=== PATIENT | female | born 1990 | race Caucasian/White ===

== ENCOUNTER 2020-05-25 15:33 | Emergency (ER) | payer BC, SELFPAY ==
[2020-05-25 15:42] VITALS: TEMP 36.6; O2SAT 98
--- NOTE | 2020-05-25 15:52 | NUR.NOTE ---
Nursing Note: provided tractor operator for exam for
--- NOTE | 2020-05-25 16:55 | ED.GENADUL_ITS ---
Discharge Plan Disposition Patient Disposition: HOME Condition: Stable Discharge Details Clinical Impression: Injury of coccyx Primary Care Provider: Tita May ED Provider: Osmar Ceron Home Meds and New Rx's Prescriptions: Continued albuterol sulfate [ProAir HFA] 90 mcg/actuation HFA aerosol inhaler 2 puff IH Q6H Qty: 8.5 RF: 1 omeprazole 40 mg capsule,delayed release(DR/EC) 40 mg PO DAILY Qty: 60 RF: 6 metoclopramide HCl [Reglan] 10 mg tablet 10 mg PO QAC PRN (Reason: nausea and vomiting) Qty: 30 RF: 0 ondansetron HCl [Zofran] 4 mg tablet 4 mg PO Q8H PRN (Reason: nausea and vomiting) Qty: 20 RF: 1 No Action enoxaparin 40 mg/0.4 mL syringe 40 mg SC DAILY Qty: 4 RF: 10 Discharge Instructions Instructions: Coccyx Injury (ED) Additional Instructions: Please take acetaminophen (tylenol) - 650mg every 6 hours by mouth as needed for pain. Please hold your Lovenox dose today. You can continue tomorrow night. Please follow-up with obstetrics. Call on Tuesday. Return to the ER for any worsening or new concerning symptoms. Referrals: Margot James MD [ [facility] STAFF PHYSICIAN] - Discharge Data Discharge Date/Time-TO BE ENTERED AT DEPARTURE: 05/25/20 17:18 Medical Decision Making 29-year-old female 8 weeks on Lovenox here with coccyx pain tenderness over distal sacrum and coccyx after fall from hammock. Abdominal exam is benign. No vaginal bleeding. Patient is neurologically intact. She does have some pain in her right buttock which I suspect is secondary to nerve irritation. No indication for x-ray at this time. Will give Tylenol for pain and have her follow-up with gynecology. HPI General Date/Time Provider Initiated Documentation: 05/25/20 15:46 . Limitations to Documentation: no limitations . Information obtained by: patient . HPI Narrative: 29-year-old female, 8 weeks , presents with chief complaint of low back pain. Patient notes she was lying in a hammock and the hemic attachment broke and she fell to the ground landing on her tailbone. This occurred just prior to arrival today. Pain is severe. Pain worse with movement. She did not hit her head and denies headache or loss of consciousness. No neck pain. No upper back pain. She denies abdominal pain. Patient is on Lovenox as prophylaxis for DVT. No vaginal bleeding. Related Data Home Medications Medication Instructions Recorded Confirmed albuterol sulfate 90 mcg/actuation 2 puff IH Q6H #8.5 gm 05/12/20 05/25/20 aerosol inhaler omeprazole 40 mg capsule,delayed 40 mg PO DAILY #60 cap 05/14/20 05/25/20 release metoclopramide HCl 10 mg tablet 10 mg PO QAC PRN #30 tab 05/19/20 05/25/20 ondansetron HCl 4 mg tablet 4 mg PO Q8H PRN #20 tab 05/19/20 05/25/20 enoxaparin 40 mg/0.4 mL 40 mg SC DAILY #4 syrg 06/12/20 subcutaneous syringe Previous Rx's Medication Instructions Recorded albuterol sulfate 90 mcg/actuation 2 puff IH Q6H #8.5 gm 05/12/20 aerosol inhaler omeprazole 40 mg capsule,delayed 40 mg PO DAILY #60 cap 05/14/20 release metoclopramide HCl 10 mg tablet 10 mg PO QAC PRN #30 tab 05/19/20 ondansetron HCl 4 mg tablet 4 mg PO Q8H PRN #20 tab 05/19/20 enoxaparin 40 mg/0.4 mL 40 mg SC DAILY #4 syrg 06/12/20 subcutaneous syringe Allergies Allergy/AdvReac Type Severity Reaction Status Date / Time No Known Allergies Allergy Verified 05/28/20 13:35 General Stated Complaint: Orthopedic LEWIS: 3 Review of Systems All systems reviewed & are unremarkable except as noted in HPI and below Constitutional Constitutional: Denies weakness Cardiovascular Cardiovascular: Denies dyspnea Respiratory Respiratory: Denies dyspnea Gastrointestinal Gastrointestinal: Denies abdominal pain Musculoskeletal Musculoskeletal: Reports as per HPI Neurologic Neurologic: Denies sensory deficit and Denies weakness PFSH Medical History Nausea and vomiting during 2/2 GERD. Rx Omeprazole Positive test Family History Mother Breast cancer Hypertension Social History Smoking/Tobacco Use Status: Never Alcohol Intake: never Substance use type: does not use Do you feel safe at home: Yes Do you feel safe in your relationship?: Yes Female Reproductive History Menstrual Age of Menarche: 11 Duration of menses: 3-5 days History History 4 Para Hx # Term Pregnancies 2 Multiple births Hx # Pregnancies Ectopic pregnancies AB induced Hx Number of Living Children AB spontaneous Exam Const General: cooperative and no acute distress HENMT Head: normocephalic and atraumatic Eyes EOM: EOM intact bilaterally Resp Auscultation: clear to auscultation bilaterally, no rales, no rhonchi and no wheezes Cardio Rate: regular rate and not tachycardic Rhythm: regular rhythm GI Palpation: soft, not firm, no guarding, no masses, not rigid and nontender Back/Spine/Pelvis Cervical Spine: cervical ROM normal, No cervical spinal tenderness and No step off deformity Thoracic/Lumbar Spine: No thoracic spinal tenderness and No lumbar spinal tenderness Pelvis: no pain with lateral compression Sacrum: tenderness midline Coccyx: tenderness on direct palpation Skin General skin exam: no rashes or lesions noted Neuro General: patient alert, patient awake, patient oriented x3 and tone normal Motor: strength 5/5 throughout (Bilateral lower extremities) Sensory Exam: no sensory deficits noted (Bilateral lower extremities) Psych Appearance: grossly normal Mental Status: mental status grossly normal Course Vital Signs Vital signs: Vital Signs Temperature 36.6 C 05/25/20 15:42 Pulse Oximetry 98 05/25/20 15:42 Temperature 36.6 C 05/25/20 15:42 Temperature Source Tympanic 05/25/20 15:42 Respiratory Effort Non-Labored 05/25/20 15:45 Blood Pressure Position Sitting 05/25/20 15:42 Pulse Oximetry 98 05/25/20 15:42 Oxygen Delivery Method Room Air 05/25/20 15:42 Oxygen Flow Rate 0 05/25/20 15:42 Pain Level 7 05/25/20 15:42
[2020-05-25 17:08] VITALS: BP 116/87; PULSE 81; RESP 16; TEMP 36.6; O2SAT 98
[2020-05-25] MEDS: Lidocaine 5% Patch 1 PATCH TP (17:19)
== END 2020-05-25 17:18 | disposition home or self-care (01) ==
LOC: ER 17:11
PROVIDERS: Emergency Provider Student in an Organized Health Care Education/Training Program; PCP Internal Medicine
DX: O26.891 Other specified pregnancy related conditions, first trimester (principal); S39.82XA Other specified injuries of lower back, initial encounter; M53.3 Sacrococcygeal disorders, not elsewhere classified; W17.89XA Other fall from one level to another, initial encounter; Z3A.08 8 weeks gestation of pregnancy; Z86.718 Personal history of other venous thrombosis and embolism; Z79.01 Long term (current) use of anticoagulants
CPT/HCPCS: 99282

== ENCOUNTER 2020-07-08 13:46 | Outpatient (CLI) | payer MEDICAID, SELFPAY ==
[2020-07-08 14:48] LABS: Kit/Specimen SENT
[2020-07-08 14:52] LABS: Abs Immature Grans 0.21 10^3/uL (0.0-0.06); Absolute Basophil Count 0.04 10^3/uL (0.0-0.2); Absolute Eosinophil Count 0.19 10^3/uL (0.0-0.7); Absolute Lymphocyte Count 3.08 10^3/uL (1.2-3.4); Absolute Monocyte Count 0.93 10^3/uL (0.1-0.8); Absolute Neutrophil Count 10.49 10^3/uL (1.2-6.7); Basophils % 0.3; Eosinophils % 1.3; HCT 42.3 % (36.0-46.0); HGB 14.4 g/dL (11.2-15.7); Immature Grans % 1.4; Lymphocytes % 20.6; MCH 29.4 pg (27.0-33.0); MCV 86.3 fL (80-95); MPV 10.1 fL (8.0-11.0); Monocytes % 6.2; Neutrophils % 70.2; Nucleated RBC 0 %; Platelet Count 243 10^3/uL (130-400); RDW 13.2 % (11.7-14.6); RDW-SD 41.1 fL; WBC 14.94 10^3/uL (4.4-10.8)
[2020-07-08 16:01] LABS: TSH (W/Ref FT4) 2.18 uIU/mL (0.36-3.74)
[2020-07-09 10:29] LABS: Varicella IgG Antibody Positive (See Note)
[2020-07-09 10:33] LABS: Rubella IgG Ab (UVM) Positive (See Note)
[2020-07-09 10:38] LABS: Syphilis Serology (RPR) Negative (Negative)
[2020-07-09 10:53] LABS: Hepatitis C Ab w Rflx HCV PCR Negative (Negative)
[2020-07-09 11:04] LABS: HIV-1/2 Ag & Ab Screen Negative (Negative)
[2020-07-09 15:17] LABS: Hepatitis B Surface Ag Positive (Negative)
[2020-07-17 23:54] LABS: Result Summary NEGATIVE; Specimen WB Whole Blood
[2020-07-18 18:29] LABS: Specimen WB Whole Blood
== END 2020-07-08 14:06 ==
PROVIDERS: Obstetrics & Gynecology Gynecology; Visit Provider Obstetrics & Gynecology
DX: Z34.91 Encounter for supervision of normal pregnancy, unspecified, first trimester (principal); Z36.89 Encounter for other specified antenatal screening; Z11.4 Encounter for screening for human immunodeficiency virus [HIV]; Z11.59 Encounter for screening for other viral diseases; Z01.84 Encounter for antibody response examination
CPT/HCPCS: 36415; 81329; 86787; 86803; 86850; 86900; 86901; 87340; 87389; 81220; 84443; 85025; 86592; 86762

== ENCOUNTER 2021-04-15 02:32 | Outpatient (CLI) | payer MEDICAID, SELFPAY ==
--- NOTE | 2021-04-15 07:15 | DI.US_ITS ---
Exam(s) US OB 1ST TRIMESTER EXAM: US OB 1ST TRIMESTER CLINICAL HISTORY: unknown EGA. Office u/s c/w 12w5d,Z34.82,SUPERVISION OF . TECHNIQUE: First trimester obstetrical ultrasound was performed. COMPARISON: US US OB F/U FACIAL/LVOT/RVOT from 07/07/2020 FINDINGS: There is an intrauterine gestational sac which contains a viable fetus exhibiting heart rate 165 BPM and movement. There is normal amount of amniotic fluid. Placenta is developing posteriorly. Dating parameters places at approximately 13 weeks and 5 days gestational age. BPD measures 13 weeks and 5 days Head circumference measures 13 weeks and 5 days Abdominal circumference measures 13 weeks and 4 days Femur length measures 13 weeks and 5 days IMPRESSION:: Single viable intrauterine gestation which is approximately 13 weeks and 5 days gestati onal age, implying MACO of October 16, 2021 There is normal amount of amniotic fluid. Placenta is developing posteriorly DATA REPOSITORY:
== END 2021-04-15 02:52 ==
PROVIDERS: PCP Internal Medicine; Visit Provider Obstetrics & Gynecology Gynecology
DX: Z34.81 Encounter for supervision of other normal pregnancy, first trimester (principal); Z3A.13 13 weeks gestation of pregnancy
CPT/HCPCS: 76801

== ENCOUNTER 2021-05-05 03:39 | Outpatient (CLI) | payer MEDICAID, SELFPAY ==
[2021-05-05 08:49] LABS: Glucose,1 Hr (Glucola) 117 mg/dL (80-140)
[2021-05-06 16:25] LABS: Calculated age at EDD 32 years; Cigarette smoking status non-Smoker; GA used in risk estimate Scan estimate; INHIBIN 103 pg/mL; IVF Pregnancy No; Initial or repeat testing Initial testing; Insulin dependent diabetes No; Maternal Weight 205 lbs; Number of Fetuses 1; Physician Phone Number 802-748-7300; Prev Down(T21)/Trisomy Pregnan No; Prev Pregnancy w/NTD No; RECOMMENDED FOLLOW UP None.; Results Summary Normal risk; hCG, TOTAL 44.6 IU/mL; uE3 1.42 ng/mL; uE3 MoM 1.39 MoM
== END 2021-05-05 03:40 | disposition home or self-care (01) ==
LOC: LBO 03:40
PROVIDERS: PCP Internal Medicine; Visit Provider Obstetrics & Gynecology Gynecology
DX: Z36.89 Encounter for other specified antenatal screening; Z3A.17 17 weeks gestation of pregnancy; Z34.92 Encounter for supervision of normal pregnancy, unspecified, second trimester
CPT/HCPCS: 36415; 81511; 82950

== ENCOUNTER 2021-05-26 02:46 | Outpatient (CLI) | payer MEDICAID, SELFPAY ==
--- NOTE | 2021-05-26 06:30 | DI.US_ITS ---
Exam(s) US OB 2-3 TRIMESTER EXAM: US OB 2-3 TRIMESTER CLINICAL HISTORY: morphology,z34.82. TECHNIQUE: Transabdominal obstetrical ultrasound performed. COMPARISON: US US OB 1ST TRIMESTER from 04/15/2021 US US OB 1ST TRIMESTER from 04/15/2021 FINDINGS: Transabdominal obstetrical ultrasound performed. FINDINGS: Number of fetuses: One. position: Vertex. Placental grade: 1 Placental location: Posterior. No evidence of previa. BIOMETRIC DATA: BPD: 44 millimeters, 19+ 2 weeks HC: 167 millimeters, 19+ 3 weeks AC: 142 millimeters, 19+ 4 weeks FL: 30 millimeters, 19+ 3 weeks Cisterna Magna: 6 millimeters Cerebellum: 1.9 cm EFW: 294 grms 39 Composite Age: 19+ 3 weeks EDC by US: 17 October 2021 Heart Rate: 157BPM Amniotic fluid: Amount of fluid is visually within normal limits. ANATOMICAL SURVEY: Four-chambered heart: Unremarkable. LVOT: Unremarkable. RVOT: Unremarkable. Left-sided stomach: Unremarkable. urinary bladder: Unremarkable. Bilateral kidneys: Unremarkable. Three-vessel cord: Unremarkable. Cord insertion: Unremarkable. Umbilical artery velocity: Unremarkable. Posterior fossa:Unremarkable. ventricles: Unremarkable. nose: Unremarkable. lips: Unremarkable. palate: Unremarkable. spine: Unremarkable. Two arms and two legs: Unremarkable. IMPRESSION: 1. Single live intrauterine gestation as above. 2. Normal anatomic survey. DATA REPOSITORY:
== END 2021-05-26 03:06 ==
PROVIDERS: PCP Internal Medicine; Visit Provider Obstetrics & Gynecology Gynecology
DX: Z34.82 Encounter for supervision of other normal pregnancy, second trimester (principal); Z3A.19 19 weeks gestation of pregnancy
CPT/HCPCS: 76805

== ENCOUNTER 2021-07-30 02:19 | Outpatient (CLI) | payer MEDICAID, SELFPAY ==
[2021-07-30 08:47] LABS: HCT 36.6 % (36.0-46.0); HGB 12.2 g/dL (11.2-15.7); MCH 27.9 pg (27.0-33.0); MCHC 33.3 % (32.0-36.0); MCV 83.8 fL (80-95); MPV 9.8 fL (8.0-11.0); Platelet Count 231 10^3/uL (130-400); RBC 4.37 10^6/uL (3.93-5.22); RDW 12.9 % (11.7-14.6); RDW-SD 39.4 fL; WBC 13.14 10^3/uL (4.4-10.8)
[2021-07-30 08:53] LABS: Glucose,1 Hr (Glucola) 103 mg/dL (80-140)
[2021-07-30 10:37] LABS: ALT 18 U/L (14-59); AST 13 U/L (15-37); Albumin 2.7 g/dL (3.4-5.0); Alkaline Phosphatase 61 U/L (46-116); Anion Gap 11.1 mmol/L (3-11); BUN 8 mg/dL (7-18); Bilirubin, Total 0.2 mg/dL (0.2-1.0); CO2 22.9 mmol/L (21.0-32.0); CREATININE 0.7 mg/dL (0.55-1.02); Calcium 8.1 mg/dL (8.5-10.1); Chloride 105 mmol/L (98-107); Glucose 93 mg/dL (74-106); Potassium 3.9 mmol/L (3.5-5.1); Sodium 139 mmol/L (136-145); Total Protein 6.3 g/dL (6.4-8.2)
== END 2021-07-30 02:20 | disposition home or self-care (01) ==
LOC: LBO 02:19
PROVIDERS: PCP Internal Medicine; Visit Provider Obstetrics & Gynecology Gynecology
DX: Z34.92 Encounter for supervision of normal pregnancy, unspecified, second trimester (principal)
CPT/HCPCS: 36415; 80053; 82950; 85027

== ENCOUNTER 2021-10-06 20:52 | Outpatient (REF) | payer MEDICAID, SELFPAY ==
[2021-10-06 21:42] LABS: *AMPHETAMINES SCREEN URINE Negative (Negative); *BARBITURATES SCREEN URINE Negative (Negative); *BENZODIAZEPINES SCREEN URINE Negative (Negative); Cannabinoids THC Negative (Negative); Cocaine Screen,Urine Negative (Negative); METHADONE URINE SCREEN Negative (Negative); OPIATES URINE SCREEN Negative (Negative)
[2021-10-06 21:43] LABS: Tricyclic Antidepressants Negative (Negative)
[2021-10-14 10:13] LABS: Buprenorphine Negative ng/mL (Cutoff: 5.0); Norbuprenorphine Negative ng/mL (Cutoff: 2.5)
== END 2021-10-06 20:53 | disposition home or self-care (01) ==
LOC: LBN 20:52
PROVIDERS: PCP Internal Medicine; Visit Provider Obstetrics & Gynecology
DX: Z34.93 Encounter for supervision of normal pregnancy, unspecified, third trimester (principal)
CPT/HCPCS: 80307; 87081

== ENCOUNTER 2021-10-08 07:40 | Outpatient (CLI) | payer MEDICAID, SELFPAY ==
[2021-10-08 14:58] VITALS: BP 128/68; PULSE 111
[2021-10-08 15:00] VITALS: BP 128/68; PULSE 111
[2021-10-08 15:16] VITALS: BP 128/68; PULSE 111; TEMP 36.8
--- NOTE | 2021-10-15 18:47 | W.OBNST ---
Date of service: 10/08/21 Time of Service: 18:48 NST Evaluation Reason for NST Reasons for Nonstress Test: OTHER, SEE COMMENT Reason for NST Other: pt on blood thinners Gestational Age Gestational Age in Weeks and Days: 39 Weeks and 6Days Test and Monitor Explained Test/Monitor Explained: Test Explained, Monitor Explained and Patient Verbalized Understanding Vital Signs Blood Pressure: 128/68 Pulse: 111 Temperature: 98.2 F Urine Results Urine Protein: Positive Urine Ketones: Negative Urine Glucose: Negative Urine Blood: Negative NST Information Date on Monitor: 10/08/21 Time on Monitor: 14:52 Date off Monitor: 10/08/21 Time off Monitor: 15:13 Total Time on Monitor: 21 NST Interventions: PO Hydration Contraction Frequency: X1 NST Evaluation Patient States Movement: Present FHR Baseline: 135 Variability: Moderate 6-25 bpm Accelerations: 15x15 Decelerations: None NST Results: Reactive Note NST Note NST Reviewed and Verified by: Margot James
[2021-10-15 18:48] VITALS: BP 128/68; PULSE 111; TEMP 36.8
== END 2021-10-08 15:18 | disposition home or self-care (01) ==
LOC: BCD 07:42 → OBS 14:51
PROVIDERS: PCP Internal Medicine; Visit Provider Obstetrics & Gynecology Gynecology
DX: O26.893 Other specified pregnancy related conditions, third trimester (principal); Z79.01 Long term (current) use of anticoagulants; Z3A.39 39 weeks gestation of pregnancy
CPT/HCPCS: 59025

== ENCOUNTER 2021-10-13 16:13 | Outpatient (CLI) | payer MEDICAID, SELFPAY ==
[2021-10-13 16:35] VITALS: BP 127/73; PULSE 112; TEMP 36.8
[2021-10-13 16:36] VITALS: BP 127/73; PULSE 112; TEMP 36.8
--- NOTE | 2022-02-04 22:29 | W.OBNST ---
Date of service: 02/04/22 Time of Service: 21:29 NST Evaluation Reason for NST Reasons for Nonstress Test: OTHER, SEE COMMENT Reason for NST Other: on blood thinners Gestational Age Gestational Age in Weeks and Days: 40 Weeks and 5Days Test and Monitor Explained Test/Monitor Explained: Patient Verbalized Understanding Vital Signs Blood Pressure: 127/73 Pulse: 112 Temperature: 98.2 F Urine Results Urine Protein: Negative Urine Ketones: Negative Urine Glucose: Negative Urine Blood: Negative NST Information Date on Monitor: 10/13/21 Time on Monitor: 16:25 Date off Monitor: 10/13/21 NST Interventions: PO Hydration NST Evaluation Patient States Movement: Present FHR Baseline: 130 Variability: Moderate 6-25 bpm Accelerations: 15x15 Decelerations: None NST Results: Reactive Note NST Note Note: reactive NST. Pt will continue currrent management. declines IOL at this time. NST Reviewed and Verified by: Margot James
[2022-02-04 22:31] VITALS: BP 127/73; PULSE 112; TEMP 36.8
== END 2021-10-13 17:00 | disposition home or self-care (01) ==
LOC: BCD 16:15 → OBS 16:27
PROVIDERS: PCP Internal Medicine; Visit Provider Obstetrics & Gynecology
DX: O26.893 Other specified pregnancy related conditions, third trimester (principal); Z79.01 Long term (current) use of anticoagulants; Z3A.40 40 weeks gestation of pregnancy
CPT/HCPCS: 59025

== ENCOUNTER 2021-10-15 09:26 | Outpatient (CLI) | payer MEDICAID, SELFPAY ==
[2021-10-15 14:55] VITALS: BP 126/73; PULSE 100; TEMP 36.8
[2021-10-15 15:24] VITALS: BP 126/73; PULSE 100
--- NOTE | 2021-10-15 16:14 | PDOC.NST_ITS ---
Date of service: 10/15/21 Time of Service: 16:14 NST Evaluation Reason for NST Reasons for Nonstress Test: OTHER, SEE COMMENT Reason for NST Other: Patient on blood thinners Heprin Gestational Age Gestational Age in Weeks and Days: 39 Weeks and 6Days Test and Monitor Explained Test/Monitor Explained: Test Explained, Monitor Explained and Patient Verbalized Understanding Vital Signs Blood Pressure: 126/73 Pulse: 100 Temperature: 98.2 F Urine Results Urine Protein: Negative Urine Ketones: Negative Urine Glucose: Negative Urine Blood: Negative NST Information Date on Monitor: 10/15/21 Time on Monitor: 15:05 Date off Monitor: 10/15/21 Time off Monitor: 15:41 Total Time on Monitor: 36 NST Interventions: None NST Evaluation Patient States Movement: Present FHR Baseline: 135 Variability: Moderate 6-25 bpm Accelerations: 15x15 Decelerations: None NST Results: Reactive Note Presentation Presentation Results: vtx NST Note Note: She is accompanied by her Al. NST reactive. SVE unable to determine cervical dilation cervix soft, midposition but presenting part h igh so SVE somewhat limited. Bedside TA u/s: VTX. Subjectively adequate fluid. Plan for IOL made with pt. She will present to at 8pm on 10/19/21 for cervical ripening and have either AROM on 10/20/21 or Oxytocin augmentation of labor. Pt counseled re: signs of active labor. She knows who and when to call if labor suspected. Pt will hold unfractionated Heparin evening of admission. NST Reviewed and Verified by: Margot James
[2021-10-15 16:15] VITALS: BP 126/73; PULSE 100; TEMP 36.8
[2021-10-16 10:54] VITALS: BP 128/76; PULSE 96
== END 2021-10-15 16:05 | disposition home or self-care (01) ==
LOC: BCD 09:28 → OBS 14:53
PROVIDERS: PCP Internal Medicine; Visit Provider Obstetrics & Gynecology Gynecology
DX: O26.893 Other specified pregnancy related conditions, third trimester (principal); Z79.01 Long term (current) use of anticoagulants; Z3A.39 39 weeks gestation of pregnancy
CPT/HCPCS: 59025

== ENCOUNTER 2021-10-20 07:09 | Outpatient (CLI) | payer MEDICAID, SELFPAY ==
[2021-10-20 17:16] VITALS: BP 134/80; PULSE 109; TEMP 36.9
--- NOTE | 2021-10-21 09:40 | W.OBNST ---
Date of service: 10/20/21 Time of Service: 16:45 NST Evaluation Reason for NST Reasons for Nonstress Test: OTHER, SEE COMMENT Reason for NST Other: Patient is on an anticoagulant. Gestational Age Gestational Age in Weeks and Days: 40 Weeks and 4Days Test and Monitor Explained Test/Monitor Explained: Test Explained and Monitor Explained Vital Signs Blood Pressure: 134/80 Pulse: 109 Temperature: 98.4 F Urine Results Urine Protein: Negative Urine Ketones: Negative Urine Glucose: Negative Urine Blood: Negative NST Information Date on Monitor: 10/20/21 Time on Monitor: 16:44 Date off Monitor: 10/20/21 Time off Monitor: 17:04 Total Time on Monitor: 20 NST Interventions: None NST Evaluation Patient States Movement: Present FHR Baseline: 135 Variability: Moderate 6-25 bpm Accelerations: 15x15 Decelerations: None NST Results: Reactive Note Other (Cx: 2/60/-3, head well applied. Membranes swept. ) NST Note Note: P2 @40.1wks with reactive NST. Plans to return tomorrow am for induction of labor. Will hold heparin tonight in case of labor. NST Reviewed and Verified by: Madeleine Kamara
[2021-10-21 09:42] VITALS: BP 134/80; PULSE 109; TEMP 36.9
== END 2021-10-20 17:20 | disposition home or self-care (01) ==
LOC: BCD 07:13 → OBS 16:53
PROVIDERS: PCP Internal Medicine; Visit Provider Obstetrics & Gynecology
DX: O26.893 Other specified pregnancy related conditions, third trimester (principal); Z79.01 Long term (current) use of anticoagulants; Z3A.40 40 weeks gestation of pregnancy
CPT/HCPCS: 59025

== ENCOUNTER 2021-10-21 11:43 | Inpatient (IN) | payer MEDICAID, SELFPAY ==
[2021-10-21] VITALS (28 sets, daily range): BP systolic 105–140; BP diastolic 56–83; PULSE 78–140; RESP 18–20; TEMP 36.6–37.2; O2SAT 97–99; BMI 45.7
--- NOTE | 2021-10-21 12:11 | HPE_ITS ---
Date of service: 10/21/21 Time of Service: 12:11 Assessment and Plan Assessment and plan (1) Chronic hepatitis B: Status: Chronic Assessment and plan: Normal LFTs during . Will avoid scalp electrodes. Pediatrics will be notified of patient's status at the time of delivery. (2) Encounter for induction of labor: Status: Acute Assessment and plan: Encounter for induction of labor patient with chronic anticoagulation during this secondary to adverse thrombolic events in previous . Her last dose of unfractionated heparin was 10/20/2021. Anesthesia has been notified. Testing for INR PT has been ordered. CBC is pending (3) History of venous thromboembolism: Status: Acute (4) Rh deficiency: Status: Acute Assessment and plan: Plan to administer RhoGam after delivery. OB-HPI Labor/Delivery History of Present Illness Reason for Visit: Induction of labor at term Chief Complaint: Scheduled Induction of Labor Indication for Induction: Post Date (Patient on chronic prophylactic anticoagulation during this .). MACO Calculator Estimated Delivery Date Method Current WG Current Estimate 10/16/21 Ultrasound #2 40w 5d Other Estimates 11/07/21 LMP (Uncertain) 37w 4d 10/14/21 Ultrasound #1 41w 0d History of Present Expected Delivery Route/Plan MD care. Plan . Specific Issues/Plan -Previous IUFD in early second trimester. 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 Pt will have QUAD screen and 2nd trimester morphology u/s. -Hx of DVT with 1st trimester. 04/06/21. Will begin prophylactic Enoxaparin 40mg SQ/day. Change to unfractionated Heparin @ 36w. Pt would like to avoid IOL and will plan on stopping fractionated Heparin when labor anticipated. Plan PTT on admission to assess if candidate for neuroaxial analgesia. Pt has been counseled epidural vs nitrous when active. -Elevated BMI. Early and 28w Glucola nl. -Hx of Hep B AB. Exposure thru parents. 08/10/21 Nl LFT's. No FSE in labor. HBIG to infant at . Review of Systems All systems reviewed & are unremarkable except as noted in HPI and below Constitutional Constitutional: Reports difficulty sleeping (Secondary to fetus being active at night.), Denies headache(s) and Reports weight gain (50 pounds this ) ENT Ears, Nose, Mouth, and Throat: Denies headache(s) Cardiovascular Cardiovascular: Reports system reviewed and no additional complaints, except as documented Respiratory Respiratory: Reports other (Patient used metered-dose inhaler after feeling tight last evening) Comments: No active wheezing no shortness of breath today. Gastrointestinal Gastrointestinal: Reports system reviewed and no additional complaints, except as documented Genitourinary Genitourinary: Reports system reviewed and no additional complaints, except as documented Musculoskeletal Musculoskeletal: Reports system reviewed and no additional complaints, except as documented, Reports myalgias (Somatic complaints of ) and Denies radiating pain into limb Neurologic Neurologic: Reports system reviewed and no additional complaints, except as documented and Denies headache(s) Psychiatric Psychiatric: Reports system reviewed and no additional complaints, except as documented PFSH All Active Problems (Updated 10/21/21 @ 12:24 by Margot James MD) Rh deficiency (Acute) Encounter for induction of labor (Acute) Asthma (Chronic) Encounter for supervision of other normal , second trimester (Acute) Mild intermittent asthma (Chronic) Obesity, Class I, BMI 30.0-34.9 (see actual BMI) (Chronic) Encounter for supervision of other normal , second trimester (Acute) (Acute) Missed menses (Acute) Anxiety (Chronic) Ovarian cyst (Acute) Hepatitis B (Chronic) neds HBIG at delivery Gastroesophageal reflux disease (Chronic) Hyperemesis gravidarum (Chronic) Chronic hepatitis B (Chronic Unknown) 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 History of venous thromboembolism (Acute) DVT in Left leg during first . Rx with prophylactic anticoag 2nd . 05/14/20 Rx Enoxaparin 40mg daily. Surgical History (Updated 01/01/21 @ 16:30 by Corrine Villavicencio RN) S/P wisdom tooth extraction Family History (Updated 12/30/20 @ 10:20 by Dinora Alcala) Mother Breast cancer Hypertension Depression Bipolar 1 disorder Father Colon cancer Maternal Grandmother Cerebral aneurysm Maternal Grandfather Leukemia Social History (Updated 04/15/21 @ 14:07 by Shakira Montes LPN) Smoking/Tobacco Use Status: Never Smoking risk assessment performed?: Yes Alcohol Intake: never Substance use type: does not use Household members: spouse and children Number of Children: 2 Communication Needs: None Education Level: college Details: BS in anthropology and psychology Do you need help understanding health information?: Never Pets and animals: Yes Current gender identity: female What is your relationship status?: How often do you talk on the phone with friends or family?: three or more times per week Panel score (0-1 are the most socially isolated patients): 2 What type of physical activity do you participate in: regular exercise Duration: 30-45 minutes/day Frequency: 5-6 times per week Seatbelt use: always Drive intox or ride w/intox local 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 Date GA/Weeks # Outcome Route Wgt Sex Labor Lgth Anesthes ia Location [facility] 11/04/16 38 No Successful vaginal 7 lb Female 6hr [facility] 02/07/19 39 No Successful vaginal 5 lb 15 oz Male 7hrs induction re gina Flanagan [facility] 08/23/20 22 No Unsuccessful vaginal 1 lb 11 oz Female [facility] Delivery Date: 11/04/16 Jimenez. DVT during requiring anti-coagulation Margot James Delivery Date: 02/07/19 Joao. prophylactic anticoagulation during Margot James Delivery Date: 08/23/20 hydrops/ monosomy diagnosed second trimester. IUFD at 22 weeks. Misoprostol induction of labor with spontaneous vaginal delivery without complications Margot Tucker Meds Allergies and Home Medications Allergies Allergy/AdvReac Type Severity Reaction Status Date / Time oxycodone AdvReac Unknown Nausea and Verified 09/08/21 15:44 vomiting Home Medications Medication Instructions Recorded Confirmed Type prenat.vits,yesi,[id number] 1 tab PO DAILY 04/06/21 10/21/21 History albuterol sulfate 90 mcg/actuation 2 puff IH Q6H PRN gm 09/08/21 10/21/21 History aerosol inhaler syringe with needle 1 mL 25 gauge #100 ea 10/07/21 10/21/21 Rx x 5/8 heparin (porcine) 5,000 unit/mL 5,000 unit SUBCUT Q12H #10 ml 10/19/21 10/21/21 Rx injection syringe Exam Physical Exam Vital Signs Reviewed: Yes Notable Details: Normal Narrative: Patient presents for induction of labor at 40 W5D EGA. She has received prophylactic anticoagulation during this secondary to history of a DVT in her first . This has been uncomplicated total weight gain 50 pounds surveillance has been unremarkable. Constitutional Constitutional: obese and cooperative Detailed Labor and Delivery Exam Dilation: 1 Effacement (%): 50 station: -2 Position: OA Cervix position: mid Consistency: soft Alcala Score: Cervical Points Exam 0 1 2 3 Dilation Closed 1-2cm 3-4 cm 5-6cm Effacement 0-30% 40-50% 60-70% 80% Consistency Firm Medium Soft Station -3 -2 -1,0 +1,+2 Position Posterior Mid Anterior ALCALA Score(Cervical Ripeness Score): 6 Amniotic Membrane Status: Intact Contraction Frequency(min): Occasional Contraction Intensity: Mild Fetus A Heart Rate Baseline: 140 Monitor Accelerations: 15 X 15 Monitor Decelerations: None Variability: Moderate (6-25 BPM) Presentation: Cephalic Categories: Category I Est. Weight: 3700 lb Assessment Note: Attempt at artificial rupture membranes unsuccessful. HEENT Exam HEENT Exam: Normal Neck Exam Neck Exam: Normal Chest/Brest/Axilla Exam Chest Exam: Not Done Breast Exam Breast Exam: Not Done Respiratory Exam Respiratory Exam: Normal Cardiovascular Exam Cardiovascular Exam: Normal Abdominal Exam Abdominal Exam: Normal (No focal tenderness.) Rectal Exam Rectal Exam: Not Done Exam Exam: Normal (As above.) Extremities Exam Extremities Exam: Normal Back/Spine/Pelvis Exam Back Exam: Not Done Pelvis Adequate: Yes Skin Exam Skin Exam: Normal Neurological Exam Neurological Exam: Normal Psychiatric Exam Psychiatric Exam: Normal Additional findings Additional findings: station -2. Unable to perform assisted rupture membranes at this time. Will begin oxytocin induction of labor. Results Results Group Beta Strep: Negative Blood Type: A- Rubella Status: Immune Varicella Immunity: Immune Abnormal Lab Findings: HBs Ag is present. Normal LFTs during this . Risk Assessment Risk for Shoulder Dystocia Historical/Initial OB: POSITIVE FOR: Pre- BMI>30; NEGATIVE FOR: Pelvic Abnormality or Previous Shoulder Dystocia Delivery Plan @ 40 wks: Vaginal delivery YULIYA Risk for Pre-Eclampsia Yes, if one or more: NEGATIVE FOR: Hx Pre-E/Gest HTN, Chronic HTN, Multiple Gestation, Pre-gestational DM, Renal Disease, Systemic Lupus or APA Syndrome Yes, if 2 or more: POSITIVE FOR: BMI>30; NEGATIVE FOR: Nulliparity, Age>= 35 yrs, >10yr btwn pregnancies, ethinicty or Previous IUGR Risk for Post- Hemorrhage Initial: POSITIVE FOR: Anticoagulation Interventions: Active management of the second stage Counseled re: Active Management: Yes Date/Initials: YULIYA 10/08/21 Risks Reviewed Risks Reviewed Upon Admission: Yes
[2021-10-21 12:25] LABS: Source Nasal/Nares
[2021-10-21 12:27] LABS: HCT 34.2 % (36.0-46.0); HGB 10.5 g/dL (11.2-15.7); MCH 25.1 pg (27.0-33.0); MCHC 30.7 % (32.0-36.0); MCV 81.8 fL (80-95); MPV 10.1 fL (8.0-11.0); Platelet Count 242 10^3/uL (130-400); RBC 4.18 10^6/uL (3.93-5.22); RDW 14.9 % (11.7-14.6); RDW-SD 44.2 fL; WBC 13.69 10^3/uL (4.4-10.8)
[2021-10-21 12:45] LABS: PTT Activated 23.9 sec (21.0-27.5); Prothrombin Time 9.8 sec (9.3-11.0)
[2021-10-21] MEDS: Lactated Ringers 1,000 ML 125 ML IV ×2 (13:00→20:51)
[2021-10-21] MEDS: Normal Saline Flush 10 ML SYR (13:10)
[2021-10-21] MEDS: Oxytocin/Normal Saline 30 UNIT/500 ML BAG 2 UNITS IV (13:45)
--- NOTE | 2021-10-21 15:05 | ANES.PREOP_ITS ---
General Info Date of Service Date Performed: 10/21/21 Height: 5 ft 2 in Weight: 113.398 kg Body Mass Index (BMI): 45.7 Meds Allergies and Home Medications Allergies Allergy/AdvReac Type Severity Reaction Status Date / Time oxycodone AdvReac Unknown Nausea and Verified 09/08/21 15:44 vomiting Home Medication Medication Instructions Recorded prenat.vits,yesi,yqr-[id number] 1 tab PO DAILY 04/06/21 albuterol sulfate 90 mcg/actuation 2 puff IH Q6H PRN gm 09/08/21 aerosol inhaler syringe with needle 1 mL 25 gauge #100 ea 10/07/21 x 5/8 heparin (porcine) 5,000 unit/mL 5,000 unit SUBCUT Q12H #10 ml 10/19/21 injection syringe Current Visit Medications: Current Medications Generic Name Dose Route Start Last Admin Trade Name Freq PRN Reason Stop Dose Admin Albuterol Sulfate 2 puff 10/21/21 11:49 Albuterol Hfa 8 Gm 60 Puff Inh IH Q6H PRN PRN Device 1 each 10/21/21 12:00 Inhaler, Assist Device MC DIRECTED ROB Sodium Chloride 500 mls @ 0 mls/hr 10/21/21 11:43 Saline 500ml Bag IV PRN PRN As Directed Oxytocin/Sodium Chloride 30 unit in 500 mls @ 2 mls/hr 10/21/21 11:45 10/21/21 14:55 Pitocin/Normal Saline IV 2 milliunits/min INFUSION ROB 2 mls/hr Titration Protocol 2 MILLIUNITS/MIN Ringer's Solution 1,000 mls @ 125 mls/hr 10/21/21 11:45 10/21/21 13:00 IV 125 mls/hr IN[facility]USION [facility] Administration IV Miscellaneous Supplies 1 each 10/21/21 11:45 Iv Access IV DIRECTED ROB Sodium Chloride 0 ml 10/21/21 11:43 Normal Saline Flush 10 Ml Syr IVP PRN PRN PFSH Active Problems Active Problems: Problem Status Onset Code Rh deficiency D58.8 Encounter for induction of labor Z34.90 Asthma J45.909 Encounter for supervision of other normal , second trimester Z34.82 Mild intermittent asthma J45.20 Obesity, Class I, BMI 30.0-34.9 (see actual BMI) E66.9 Encounter for supervision of other normal , second trimester Z34.82 Z34.90 Missed menses N92.6 Anxiety F41.9 Ovarian cyst N83.209 Hepatitis B B19.10 Gastroesophageal reflux disease K21.9 Hyperemesis gravidarum O21.0 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 Date GA/Weeks # Outcome Route Wgt Sex Labor Lgth Anesthes ia Location Prov Complic 11/04/16 38 No Successful vaginal 3175.147 g Female 6hr [facility] 02/07/19 39 No Successful vaginal 2693.205 g Male 7hrs induction re gina Flanagan [facility] 08/23/20 22 No Unsuccessful vaginal 765.437 g Female [facility] Delivery Date: 11/04/16 Jim[place]. DVT during requiring anti-coagulation Margot James Delivery Date: 02/07/19 Joao. prophylactic anticoagulation during Margot James Delivery Date: 08/23/20 hydrops/ monosomy diagnosed second trimester. IUFD at 22 weeks. Misoprostol induction of labor with spontaneous vaginal delivery without complications Margot Tucker Vital Signs and Lab Results Vital Signs Most Recent Vital Signs in EMR: Most Recent Vital Signs Temp Pulse Resp BP 36.9 C 90 18 121/56 L 10/21/21 14:20 10/21/21 14:20 10/21/21 12:27 10/21/21 14:20 Lab Results Result Diagrams: 10/21/21 12:15 Blood Type / Crossmatch: Patient ABO/Rh A Negative 10/21/21 Antibody Screen NEGATIVE 10/21/21 Complete Blood Count: White Blood Count 13.69 10^3/uL (4.4-10.8) H 10/21/21 12:15 10/21/21 Red Blood Count 4.18 10^6/uL (3.93-5.22) 10/21/21 12:15 10/21/21 Hemoglobin 10.5 g/dL (11.2-15.7) L 10/21/21 12:15 10/21/21 Hematocrit 34.2 % (36.0-46.0) L 10/21/21 12:15 10/21/21 Platelet Count 242 10^3/uL (130-400) 10/21/21 12:15 10/21/21 Complete Metabolic Panel: No Data to Display Liver Function Panel: No Data to Display Coagulation Panel: INR International Normalized Ratio 1.0 (0.9-1.1) 10/21/21 12:15 10/21/21 Prothrombin Time 9.8 sec (9.3-11.0) 10/21/21 12:15 10/21/21 Activated Partial Thromboplast Time 23.9 sec (21.0-27.5) 10/21/21 12:15 10/21/21 Cardiac Panel: No Data to Display Arterial Blood Gas: No Data to Display Venous Blood Gas: No Data to Display Pancreas Panel: No Data to Display Thyroid Panel: No Data to Display Infectious Disease: Coronavirus (COVID-19)(PCR) Pending 10/21/21 11:05 10/21/21 Coronavirus 2019 Source Nasal/Nares 10/21/21 11:05 10/21/21 Blood Cultures: No Data to Display Toxicology Panel: Urine Amphetamines Screen Negative (Negative) 10/06/21 15:30 10/06/21 Urine Benzodiazepines Screen Negative (Negative) 10/06/21 15:30 10/06/21 Urine Barbiturates Screen Negative (Negative) 10/06/21 15:30 10/06/21 Urine Cocaine Screen Negative (Negative) 10/06/21 15:30 10/06/21 Urine Methadone Screen Negative (Negative) 10/06/21 15:30 10/06/21 Urine Opiates Screen Negative (Negative) 10/06/21 15:30 10/06/21 Ur Tricyclic Antidepressants Screen Negative (Negative) 10/06/21 15:30 10/06/21 Ur Tetrahydrocannabinol (THC) Scrn Negative (Negative) 10/06/21 15:30 10/06/21 Panel: No Data to Display Anesthesia Assessment and Plan Anesthesia History Personal History: No History of Anesthesia Complications Family History: No Family History of Anesthesia Complications Exercise Tolerance Exercise Tolerance: Metabolic Equivalents>4 Pertinent Negatives Pertinent Negatives: No Major Cardiovascular Symptoms or Complaints Cardiac & Pulmonary Exam Cardiac Exam: Normal S1/S2 Heart Sounds Pulmonary Exam: Clear Bilateral Breath Sounds Implantable Cardiac Device Does patient have a Pacemaker or an ICD?: No Airway Exam Known Difficult Airway: No Mallampati Class: 3 Mouth Opening: Normal (> 3cm) Thyromental Distance: Greater than 3 cm Neck Range of Motion: Full ROM Neck Circumference: Normal Teeth Condition: Normal Dentition ASA Classification ASA Score: ASA 3 Emergency Case?: No NPO Status NPO Status: NPO Clears >2 hours, Solids >8 hours Status Status: Confirmed Anesthesia Plan Resuscitation Status: Full Code Anesthesia Technique: Spinal Anesthesia Airway Planned: Natural Airway Monitors Used: Standard Monitors Preoperative Comments:: Preoperative assessment to discuss difference between epidural and intrathecal dosing. Patient is potentially interested in neuraxial anesthesia. Patient has not dosed heparin since 10/20/21 and coagulation studies were reviewed.
--- NOTE | 2021-10-21 15:23 | PGE_ITS ---
Date of service: 10/21/21 Time of Service: 15:24 Informed Consent Informed Consent: Induction of Labor (verbal consent obtained.) and Risk,Benefits,Alternatives Discussed Pelvic Exam Dilation: 2 Effacement (%): 50 station: -2 Position: OA Cervix Position: mid Consistency: soft BISHOPS Score(Cervical Ripeness Score): 6 Vaginal Exam Presentation: Cephalic Comments: AROM with clear (sl blood tinged) fluid. Contractions Monitor Mode: External Contraction Frequency(min): q2 Contraction Duration(sec): 40 Intensity: Mild/Moderate Fetus A Presentation: Cephalic Variability: Moderate (6-25 BPM) Categories: Category I FHR Rhythm: Regular Characteristics: Normal Accelerations: 15 X 15 Decelerations: None Amniotic Membrane Status: Ruptured Rupture Method: Artifical Amniotic Fluid: Clear and [place] Tinged Date of Membrane Rupture: 10/21/21 Time of Membrane Rupture: 15:34 Assessment Note: Reassuring status. Assessment and Plan Assessment and plan (1) Encounter for induction of labor: Status: Acute Assessment and plan: Oxytocin infusion will continue. Pt encouraged to get OOB and ambulate in room. Will not try to increase Oxytocin concentration at this time. Objective Abnormal lab results 10/21/21 Range/Units 12:15 WBC 13.69 H (4.4-10.8) 10^3/uL Hgb 10.5 L (11.2-15.7) g/dL Hct 34.2 L (36.0-46.0) % MCH 25.1 L (27.0-33.0) pg MCHC 30.7 L (32.0-36.0) % RDW 14.9 H (11.7-14.6) % Temp Pulse Resp BP 98.4 F 90 18 121/56 L 10/21/21 14:20 10/21/21 14:20 10/21/21 12:27 10/21/21 14:20 Laboratory Results WBC 13.69 10^3/uL (4.4-10.8) H 10/21/21 12:15 RBC 4.18 10^6/uL (3.93-5.22) 10/21/21 12:15 Hgb 10.5 g/dL (11.2-15.7) L 10/21/21 12:15 Hct 34.2 % (36.0-46.0) L 10/21/21 12:15 MCV 81.8 fL (80-95) 10/21/21 12:15 MCH 25.1 pg (27.0-33.0) L 10/21/21 12:15 MCHC 30.7 % (32.0-36.0) L 10/21/21 12:15 RDW 14.9 % (11.7-14.6) H 10/21/21 12:15 Plt Count 242 10^3/uL (130-400) 10/21/21 12:15 MPV 10.1 fL (8.0-11.0) 10/21/21 12:15 PT 9.8 sec (9.3-11.0) 10/21/21 12:15 INR 1.0 (0.9-1.1) 10/21/21 12:15 APTT 23.9 sec (21.0-27.5) 10/21/21 12:15 APTT Cancelled 10/21/21 12:15 COVID-19 Source Nasal/Nares 10/21/21 11:05 Patient ABO/Rh A Negative 10/21/21 12:15 Antibody Screen NEGATIVE 10/21/21 12:15 Subjective Patient Reports: No new Complaints Interval history since last seen: Oxytocin infusion initated after earlier unsuccessful attempt at AROM. VTX -2, cervix stretchable to 2-3cms. Max dose of 4mu acheived and rate of contractions increased to q 1-2min. Pitocin infusion reduced to 2mu/min. Pt appreciating increased strength of contractions. Interventions Induction Indication: Post Date (pt with prophylatic anticoagulation) , Type of Induction: Pitocin , Induction Note: Oxytocin initiated ~ 1.5 hrs ago. . Results Hemoglobin/Hematocrit: Hgb 10.5 g/dL (11.2-15.7) L 10/21/21 12:15 Hct 34.2 % (36.0-46.0) L 10/21/21 12:15 Abnormal Lab Findings: Abnormal Labs 10/21/21 12:15 WBC 13.69 H Hgb 10.5 L Hct 34.2 L MCH 25.1 L MCHC 30.7 L RDW 14.9 H
[2021-10-21 16:13] LABS: COVID-19 PCR Negative (Negative)
--- NOTE | 2021-10-21 16:56 | PGE_ITS ---
Date of service: 10/21/21 Time of Service: 16:56 Informed Consent Informed Consent: Induction of Labor (verbal consent obtained.) and Risk,Benefits,Alternatives Discussed Pelvic Exam Dilation: 5 Effacement (%): 75 station: -1 Position: OA Cervix Position: posterior Consistency: soft Vaginal Exam Presentation: Cephalic Contractions Monitor Mode: External Intensity: Moderate/Strong Fetus A Monitor: External (US) Heart Rate Baseline: 140 Presentation: Cephalic Variability: Moderate (6-25 BPM) Categories: Category I FHR Rhythm: Regular Characteristics: Normal Accelerations: 15 X 15 Decelerations: None Amniotic Membrane Status: Ruptured Assessment and Plan Assessment and plan (1) Encounter for induction of labor: Status: Acute Assessment and plan: Patient progressing in labor. Labor analgesia o ptions discussed. She would prefer a spinal for analgesia. Anesthesia provider notified. Objective Abnormal lab results 10/21/21 Range/Units 12:15 WBC 13.69 H (4.4-10.8) 10^3/uL Hgb 10.5 L (11.2-15.7) g/dL Hct 34.2 L (36.0-46.0) % MCH 25.1 L (27.0-33.0) pg MCHC 30.7 L (32.0-36.0) % RDW 14.9 H (11.7-14.6) % Temp Pulse Resp BP 98.4 F 90 18 121/56 L 10/21/21 14:20 10/21/21 14:20 10/21/21 12:27 10/21/21 14:20 Laboratory Results WBC 13.69 10^3/uL (4.4-10.8) H 10/21/21 12:15 RBC 4.18 10^6/uL (3.93-5.22) 10/21/21 12:15 Hgb 10.5 g/dL (11.2-15.7) L 10/21/21 12:15 Hct 34.2 % (36.0-46.0) L 10/21/21 12:15 MCV 81.8 fL (80-95) 10/21/21 12:15 MCH 25.1 pg (27.0-33.0) L 10/21/21 12:15 MCHC 30.7 % (32.0-36.0) L 10/21/21 12:15 RDW 14.9 % (11.7-14.6) H 10/21/21 12:15 Plt Count 242 10^3/uL (130-400) 10/21/21 12:15 MPV 10.1 fL (8.0-11.0) 10/21/21 12:15 PT 9.8 sec (9.3-11.0) 10/21/21 12:15 INR 1.0 (0.9-1.1) 10/21/21 12:15 APTT 23.9 sec (21.0-27.5) 10/21/21 12:15 APTT Cancelled 10/21/21 12:15 COVID-19 Source Nasal/Nares 10/21/21 11:05 SARS-CoV-2 (PCR) Negative (Negative) 10/21/21 11:05 Patient ABO/Rh A Negative 10/21/21 12:15 Antibody Screen NEGATIVE 10/21/21 12:15 Subjective Interval history since last seen: Patient has become more comfortable since AROM. Pitocin remains at 3 milliunits/min Results Hemoglobin/Hematocrit: Hgb 10.5 g/dL (11.2-15.7) L 10/21/21 12:15 Hct 34.2 % (36.0-46.0) L 10/21/21 12:15 Abnormal Lab Findings: Abnormal Labs 10/21/21 12:15 WBC 13.69 H Hgb 10.5 L Hct 34.2 L MCH 25.1 L MCHC 30.7 L RDW 14.9 H
[2021-10-21] MEDS: Bupivacaine 0.25% Pres-Free 10 ML VIAL (17:00)
[2021-10-21] MEDS: fentaNYL 100 MCG/2 ML VIAL (17:05)
--- NOTE | 2021-10-21 18:01 | W.ANESPROC ---
Intrathecal Analgesia Date Performed: 10/21/21 Procedure Time: 17:25 Requesting Provider: Margot James Procedure Location: Obstetrics Reason Performed: Labor Intrathecal Analgesia Standard Monitors Applied: Blood Pressure, SpO2 and See EMR for corresponding vital signs Patient Position: Sitting Timeout Performed: Yes Sedation Given (Indicate Dose Given): No Sedation given Patient Mental Status: Awake Sterility: Hand Hygiene, Surgical Cap, Surgical Mask, Sterile Gloves, Sterile Drape/Sheet, Eye Protection and Chlorhexidine Placement Site: L2-L3 Interspace Spinal Needle Type: Narayan 25 Gauge Needle Length: 3.5 Inch Spinal Procedure: Site Prepped, Sterile Drape Placed, 1% Lidocaine to skin and subcutaneous tissue with 25G needle, Introducer Needle Used, Negative Heme, Positive CSF Flow and Medication Injected Paresthesia: Right Paresthesia Duration: Transient Spinal Local Anesthetic (Indicate Dose Given): Bupivacaine 0.25% PF (ml) Dose:: 1mL Additives (Indicate Dose Given): Fentanyl PF Dose:: 20mcg and Duramorph PF Dose:: 150mcg Ultrasound: Not Used Number of Attempts (See previous attempts in note section): 2 Procedure Tolerated: No Complications and Patient tolerated well Procedure Outcome: Successful Procedure Comment: 2 interspaces, first interspace unsuccessful, patient repositioned, then success. Performed By: Salma Gallagher
[2021-10-21] MEDS: Ibuprofen 600 MG TAB PO (20:11)
[2021-10-21] MEDS: Ondansetron 4 MG TAB PO (20:28)
[2021-10-21] MEDS: Ondansetron 4 MG/2 ML VIAL IVP (22:31)
[2021-10-21] MEDS: Naloxone 0.4 MG/ML VIAL IVP (22:32)
[2021-10-22] VITALS (7 sets, daily range): BP systolic 103–114; BP diastolic 63–67; PULSE 73–83; RESP 16–17; TEMP 37; O2SAT 97–99
--- NOTE | 2021-10-22 01:25 | NUR.NOTE ---
Nursing Note: Straight cath
[2021-10-22] MEDS: Ibuprofen 600 MG TAB PO ×2 (02:12→16:26)
--- NOTE | 2021-10-22 07:47 | OBVDS_ITS ---
Date of service: 10/22/21 Time of Service: 07:48 OB Labor/ Delivery Information Baby A Delivery Delivery Method: Spontaneaous Presentation: Cephalic Cephalic Position: Vertex Vertex Position: Right Occipital Posterior Providers Doctor: Margot James Survey Research Analyst: Salma Gallagher Nurse: Mily Nguyen Nurse: Erendira Soto Other: Terrance Labor/Delivery Information Number of Babies in Womb: 1 Steroids Given: None Reason Steroids Not Administered: N/A Group Beta Strep: N/A Antibiotics Administered: No Rubella Status: Immune Blood Type: A- Varicella Immunity: Immune Medication in Delivery: pt received intrathecal analgesia during labor Maternal Complications: None Shoulder Dystocia: No Stages of Labor Onset of Labor Date: 10/21/21 Onset of Labor Time: 16:00 Complete Dilatation Date: 10/21/21 Complete Dilatation Time: 18:47 Labor - Stage 1 Duration: 0 minutes ROM Baby A: 10/21/21 ROM Baby A: 15:21 ROM Total Time- Baby A: [id number] Infant Delivery Date-Baby A: 10/21/21 Delivery Time-Baby A: 19:07 Labor Stage 2 Duration: 20 minutes Placenta Delivery Date-Baby A: 10/21/21 Placenta Delivery Time-Baby A: 19:16 Labor-Stage 3 Duration: 9 minutes Total Length of Labor-Baby A: 3 hours and 7 minutes Placenta Cultured: No Placenta Status: Delivered Baby A Gender: Female (parents plan to name her Tahira) Gestational Status: Term (39-41.6 wks) Gestational Age in Weeks/Days: 40 Weeks and 5 Days weight: 7 lb 11.812 oz Length-Baby A: 20.08 in Head Circumference-Baby A: 13.39 in Score-1 Minute Interval(Baby A) Heart Rate-1 minute: 100 BPM or Greater Respiratory Effort- 1 minute: Spontaneous/Strong Cry Muscle Tone-1 minute: Active Movement Reflex Response-1 minute: Prompt Response Color-1 minute: Pallor or Cyanosis Total Score-1 minute: 8 Score-5 Minute Interval(Baby A) Heart Rate- 5 minute: 100 BPM or Greater Respiratory Effort-5 minute: Spontaneous/Strong Cry Muscle Tone-5 minute: Active Movement Reflex Response-5 minute: Prompt Response Color-5 minute: Bluish Hands or Feet Total Score- 5 minute: 9 Note: Intact perineum. Loose nuchal cord reduced after delivery. Placenta intact with nl configuration, 3V cord. Procedure Procedures: Cord Blood Collection (to lab) Interventions Pain Management Interventions: Intrathecial pt required one dose of IV Narcan to reverse N/V felt to be secondary to intrathecal meds .
--- NOTE | 2021-10-22 08:08 | W.PM.OBPNV1 ---
Date of service: 10/22/21 Time of Service: 08:08 Assessment and Plan Assessment and plan (1) Normal spontaneous vaginal delivery: Status: Acute Assessment and plan: Patient is day #1 status post normal spontaneous vaginal delivery after labor induction. Episode of nausea and vomiting throughout the night resolved this morning. Anticipate increase of diet, activity and discharge home today based on pediatric recommendation. She will continue the use of Lovenox for 6 weeks . She will be seen in the office in 2 weeks. (2) Rh deficiency: Status: Acute (3) Obesity, Class I, BMI 30.0-34.9 (see actual BMI): Status: Chronic (4) Hepatitis B: Status: Chronic (5) Chronic hepatitis B: Status: Chronic (6) History of venous thromboembolism: Status: Acute Subjective Subjective Interval history: Patient seen this morning day #1. She is doing much better this morning. She had episodes of nausea and vomiting through the evening last night related to her intrathecal narcotic. We did discuss the fact that this may or may not happen in future, however we will be much more aware of her nausea related to intrathecal narcotic in the future. Patient comments: No complaints and Pain well controlled Patient's Mood: Good. Desires discharge today baby status: Doing well and Nursing well feeding status: Exclusively breast feeding Exam Physical Exam Vital signs: Temp Pulse Resp BP Pulse Ox 98.9 F 83 20 103/63 97 10/21/21 21:40 10/22/21 05:32 10/21/21 17:11 10/22/21 05:32 10/21/21 18:06 Constitutional Constitutional: no acute distress and cooperative HEENT Exam HEENT Exam: Normal Detailed Respiratory Exam Comments: Regular rate Detail Cardiovascular Exam Comments: Pulse normal Fundal Exam Fundus: Below Umbilicus and Firm Comment: Per nursing examination DetailedPsychiatric Exam Psych Exam: Normal Affect, Normal Thougth Process, Cooperative, Good Insight and Good Judgement Results Hemoglobin/Hematocrit: Hgb 10.5 g/dL (11.2-15.7) L 10/21/21 12:15 Hct 34.2 % (36.0-46.0) L 10/21/21 12:15 Abnormal Lab Findings: Abnormal Labs 10/21/21 12:15 WBC 13.69 H Hgb 10.5 L Hct 34.2 L MCH 25.1 L MCHC 30.7 L RDW 14.9 H
--- NOTE | 2021-10-22 08:16 | DSE_ITS ---
Date of service: 10/22/21 Time of Service: 08:16 DS: Diagnosis Discharge Diagnosis (1) Normal spontaneous vaginal delivery: Status: Acute (2) Rh deficiency: Status: Acute (3) Obesity, Class I, BMI 30.0-34.9 (see actual BMI): Status: Chronic (4) Hepatitis B: Status: Chronic (5) Chronic hepatitis B: Status: Chronic (6) History of venous thromboembolism: Status: Acute Discharge Plan Disposition Patient Disposition: HOME Condition: Good Discharge Details Reason For Visit: Induction of labor at term, Admit Date/Time: 10/21/21 11:43 Admit Provider: Manuela Terrell Attending Provider: Manuela Terrell Primary Care Provider: Tita May Hospital Course Hospital Course: Patient was admitted for labor induction. She had Pitocin started, artificial rupture of membranes, epidural for pain control and went on to a normal spontaneous vaginal delivery. She had an uncomplicated course and was discharged home day #1. She will continue her prophylactic Lovenox for 6 weeks . Home Meds and New Rx's Prescriptions: New enoxaparin [Lovenox] 40 mg/0.4 mL syringe 40 mg subcut DAILY Qty: 4 RF: 3 Continued prenat.vits,yesi,fgt-ammk-bhqme Tablet 1 tab PO DAILY RF: 0 albuterol sulfate [ProAir HFA] 90 mcg/actuation HFA aerosol inhaler 2 puff IH Q6H PRNRF: 0 Discontinued heparin (porcine) 5,000 unit/mL syringe 5,000 unit subcut Q12H Qty: 10 RF: 5 No Action (DME) Monoject TB Safety Syringe 1 mL 25 gauge x 5/8 syringe See Rx Instructions .ROUTE .MEDSUPPLY Qty: 100 RF: 0 Discharge Instructions Stand Alone Forms: BC Post Vaginal Deliver Activity:: Activity as Tolerated Equipment/Supplies:: No Equipment Needed Diet:: As Tolerated Discharge Orders Discharge Orders: Discharge Order (Routine); Ordered 10/22/21 Ordered By: Manuela Terrell OB:DS Summary Summary Vaginal Delivery Method: Spontaneaous Episiotomy Description: None Laceration Description: None Laceration Extension: N/A Contraception Discussed Contraception Discussed: No, [place] Gender-Baby A: Female (parents plan to name her Tahira) weight: 7 lb 11.812 oz Status at Discharge Functional status at discharge: independent ambulation Overall status at discharge: patient is progressing back to baseline Mental Status: mental status grossly normal Speech and Movement: speech and movement normal Mood: congruent mood Affect: normal affect Exam Physical Exam Vital signs: Temp Pulse Resp BP Pulse Ox 98.9 F 83 20 103/63 97 10/21/21 21:40 10/22/21 05:32 10/21/21 17:11 10/22/21 05:32 10/21/21 18:06 Constitutional Comments: See physical exam from progress note dated 10/22/2021 [facility]LY [facility], [facility] All Active Problems (Updated 10/22/21 @ 08:11 by Manuela Terrell DO) Normal spontaneous vaginal delivery (Acute) Rh deficiency (Acute) Encounter for induction of labor (Acute) Asthma (Chronic) Encounter for supervision of other normal , second trimester (Acute) Mild intermittent asthma (Chronic) Obesity, Class I, BMI 30.0-34.9 (see actual BMI) (Chronic) Encounter for supervision of other normal , second trimester (Acute) (Acute) Missed menses (Acute) Anxiety (Chronic) Ovarian cyst (Acute) Hepatitis B (Chronic) neds HBIG at delivery Gastroesophageal reflux disease (Chronic) Hyperemesis gravidarum (Chronic) Chronic hepatitis B (Chronic Unknown) 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 History of venous thromboembolism (Acute) DVT in Left leg during first . Rx with prophylactic anticoag 2nd . 05/14/20 Rx Enoxaparin 40mg daily. Surgical History (Updated 01/01/21 @ 16:30 by Corrine Villavicencio RN) S/P wisdom tooth extraction Family History (Updated 12/30/20 @ 10:20 by Dinora Burns) Mother Breast cancer Hypertension Depression Bipolar 1 disorder Father Colon cancer Maternal Grandmother Cerebral aneurysm Maternal Grandfather Leukemia Social History (Updated 04/15/21 @ 14:07 by Shakira Montes LPN) Smoking/Tobacco Use Status: Never Smoking risk assessment performed?: Yes Alcohol Intake: never Substance use type: does not use Household members: spouse and children Number of Children: 2 Communication Needs: None Education Level: college Details: BS in anthropology and psychology Do you need help understanding health information?: Never Pets and animals: Yes Current gender identity: female What is your relationship status?: How often do you talk on the phone with friends or family?: three or more times per week Panel score (0-1 are the most socially isolated patients): 2 What type of physical activity do you participate in: regular exercise Duration: 30-45 minutes/day Frequency: 5-6 times per week Seatbelt use: always Drive 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 Date GA/Weeks # Outcome Route Wgt Sex Labor Lgth Anesthes ia Location Prov [facility] 11/04/16 38 No Successful vaginal 7 lb Female 6hr [facility] 02/07/19 39 No Successful vaginal 5 lb 15 oz Male 7hrs induction re [facility] 08/23/20 22 No Unsuccessful vaginal 1 lb 11 oz Female [facility] Delivery Date: 11/04/16 Jimenez. DVT during requiring anti-coagulation Margot James Delivery Date: 02/07/19 Joao. prophylactic anticoagulation during Margot James Delivery Date: 08/23/20 hydrops/ monosomy diagnosed second trimester. IUFD at 22 weeks. Misoprostol induction of labor with spontaneous vaginal delivery without complications Margot Tucker DS: Data Vitals/I&O Vitals and I&O: Vital Signs Temperature 98.9 F 10/21/21 21:40 Pulse 83 10/22/21 05:32 Pulse Rhythm Regular 10/21/21 12:27 Respiratory Rate 20 10/21/21 17:11 Blood Pressure 103/63 10/22/21 05:32 Blood Pressure Mean 76 10/22/21 05:32 Pulse Oximetry 97 10/21/21 18:06 Oxygen Delivery Method Room Air 10/21/21 12:27 Oxygen Flow Rate 0 10/21/21 12:27 Intake & Output 10/21/21 10/21/21 10/22/21 11:59 23:59 11:59 Intake Total 1171.233 / 1171.233 142.222 / 142.222 Output Total 700 / 700 Balance 1171.233 / 1171.233 -557.778 / -557.778 Weight 250 lb Intake: IV 1171.233 / 1171.233 142.222 / 142.222 Output: Urine 700 / 700 Other: Urine Color Yellow Data Completed and Pending Labs on day of discharge: Labs from last 24 hours 10/22/21 10/21/21 10/21/21 05:31 12:15 12:15 WBC RBC Hgb Hct MCV MCH MCHC RDW Plt Count MPV PT 9.8 INR 1.0 APTT 23.9 Cancelled COVID-19 Source SARS-CoV-2 (PCR) Patient ABO/Rh Antibody Screen Screen Cancelled 10/21/21 10/21/21 10/21/21 12:15 12:15 11:05 WBC 13.69 H RBC 4.18 Hgb 10.5 L Hct 34.2 L MCV 81.8 MCH 25.1 L MCHC 30.7 L RDW 14.9 H Plt Count 242 MPV 10.1 PT INR APTT COVID-19 Source Nasal/Nares SARS-CoV-2 (PCR) Negative Patient ABO/Rh A Negative Antibody Screen NEGATIVE Screen
--- NOTE | 2021-10-22 09:40 | W.ANESPOSTOP ---
Postoperative Evaluation Date, Time and Location Date Performed: 10/22/21 Time Performed: 08:50 Patient Location: Obstetrics Vital Signs Most Recent Imported Vital Signs: Most Recent Vital Signs Temp Pulse Resp BP Pulse Ox 37.0 C 83 16 114/67 97 10/22/21 08:32 10/22/21 08:32 10/22/21 08:32 10/22/21 08:32 10/21/21 18:06 Pain Score Most Recent Pain Score: Most Recent Pain Score Pain Level [Abdomen] 0 10/22/21 08:32 Assessment Mental Status: Awake (Alert & Oriented to Patient Baseline) Airway and Respiratory Function: Patent airway with normal (patient baseline) respiratory exam Cardiovascular Function: Hemodynamically Stable Hydration Status: Adequately Hydrated Nausea & Vomiting: No Nausea or Vomiting Pain: Pain is tolerable per patient Peripheral Nerve Block: Patient did not receive a nerve block Postoperative Comments:: doing well. states that she has a slight area of numbness on her lower back down to her buttock. she was encouraged to reach out to us if this persists.
--- NOTE | 2021-10-22 10:10 | NUR.NOTE ---
Pt informed RN that her bottom was still numb from intrathecal and was unsure if she let anesthesia know. RN spoke with EDILBERTO Santiago, pt did report to anesthesia her symptoms, pt will call office to let MD know if numbness persists 3-4 days out. Pt also informed RN she is feeling nauseas again after eating first meals since vomiting episode. No vomiting at this time, RN will continue to monitor Nursing Note:
[2021-10-22] MEDS: Docusate Sodium 100 MG CAP PO (16:26)
== END 2021-10-22 19:40 | disposition home or self-care (01) | DRG 806 ==
PROVIDERS: Obstetrics & Gynecology Gynecology; Admitting Provider Obstetrics & Gynecology; PCP Internal Medicine; Visit Provider Obstetrics & Gynecology
DX: O48.0 Post-term pregnancy (principal); O98.42 Viral hepatitis complicating childbirth; Z37.0 Single live birth; B18.1 Chronic viral hepatitis B without delta-agent; O36.0930 Maternal care for other rhesus isoimmunization, third trimester, not applicable or unspecified; Z3A.40 40 weeks gestation of pregnancy; O99.344 Other mental disorders complicating childbirth; F41.9 Anxiety disorder, unspecified; O99.214 Obesity complicating childbirth; E66.9 Obesity, unspecified; O99.62 Diseases of the digestive system complicating childbirth; O99.52 Diseases of the respiratory system complicating childbirth; K21.9 Gastro-esophageal reflux disease without esophagitis; J45.20 Mild intermittent asthma, uncomplicated; O34.83 Maternal care for other abnormalities of pelvic organs, third trimester; N83.209 Unspecified ovarian cyst, unspecified side; Z86.718 Personal history of other venous thrombosis and embolism; Z79.01 Long term (current) use of anticoagulants
CPT/HCPCS: 36415; 85027; 85461; 86850; 86900; 86901; 87635; 85610; 85730; J2310; J2405; J3010; J8597

== ENCOUNTER 2021-10-26 15:55 | Outpatient (CLI) | payer MEDICAID, SELFPAY ==
--- NOTE | 2021-10-26 15:00 | DI.US_ITS ---
Exam(s) US LOWER EXTREMITY VENOUS LT EXAM: US LOWER EXTREMITY VENOUS LT CLINICAL HISTORY: evaluate for DVT, edema of lt lower leg, R60.0, Z86.718, pers hx thrombosis TECHNIQUE: Grayscale, color, and doppler imaging of the deep venous system of the left lower extremi ty was performed. COMPARISON: US US OB 2-3 TRIMESTER from 05/26/2021 FINDINGS: There is no evidence of intraluminal thrombus and there is normal compression and augmentation demons trated within the common femoral vein, femoral vein, and popliteal vein. In the ipsilateral calf the interrogated veins also exhibit normal compression/ augmentation properti es. The ipsilateral saphenofemoral junction is patent. IMPRESSION: 1. No evidence of DVT in the left lower extremity. DATA REPOSITORY:
== END 2021-10-26 16:15 ==
PROVIDERS: PCP Internal Medicine; Visit Provider Obstetrics & Gynecology
DX: M79.662 Pain in left lower leg (principal); R60.0 Localized edema; Z86.718 Personal history of other venous thrombosis and embolism
CPT/HCPCS: 93971

== ENCOUNTER 2021-11-07 20:17 | Emergency (ER) | payer MEDICAID, SELFPAY ==
[2021-11-07 20:21] VITALS: BP 130/80; PULSE 83; RESP 16; TEMP 36.4; O2SAT 98
--- NOTE | 2021-11-07 20:32 | ED.GENADUL_ITS ---
Discharge Plan Disposition Patient Disposition: HOME Condition: Stable Discharge Details Clinical Impression: Mastitis Primary Care Provider: Tita May ED Provider: Daniele Sykes Home Meds and New Rx's Prescriptions: New dicloxacillin 500 mg capsule 500 mg PO QID 10 Days Qty: 40 0RF Continued prenat.vits,yesi,ttg-[id number] Tablet 1 tab PO DAILY 0RF albuterol sulfate [ProAir HFA] 90 mcg/actuation HFA aerosol inhaler 2 puff IH Q6H PRN0RF (DME) Monoject TB Safety Syringe 1 mL 25 gauge x 5/8 syringe See Rx Instructions .ROUTE .MEDSUPPLY Qty: 100 0RF Rx Instructions: As directed enoxaparin [Lovenox] 40 mg/0.4 mL syringe 40 mg subcut DAILY Qty: 4 3RF Discharge Instructions Instructions: Mastitis (ED) Additional Instructions: take the antibiotics as prescribed follow up with obgyn and if this continues you may need to have an ultrasound if you feel more ill or have severe worsening pain return to the emergency department Medical Decision Making 31 yo female who delivered a child a few weeks ago comes in with about 3 days of left breast pain, body aches and fevers at home. She denies other symptoms such as cough, neck stiffness, urinary symptoms. She spoke with obgyn yesterday and despite frequent milk removal still has pain. She reached out to obgyn again but the pharmacy was closed so was referred here. She arrives stable and appears well. With Franchesca De La Cruz as nuse upholstery estimator her left breast was examined. There was no nipple discharge and she had a bout 2-3 cm mild erythema inferior to the nipple, no fluctuance or crepitus or severe pain. Seems most consistent with mastitis and less likely abscess. Given well appearance and afebrile here do not feel labs indicated at this time. Will start her on antibiotics and advised to f/u with obgyn, return precautions also given Differential Diagnosis Differential Diagnosis: mastitis, cellulitis HPI General Mode of arrival: ambulatory . Date/Time Provider Initiated Documentation: 11/07/21 20:19 . Limitations to Documentation: no limitations . Information obtained by: patient . History of Present Illness 31 year old F presents to the emergency department with the chief complaint of left breast pain, described as moderate, Quality is described as aching, Patient re ports no radiation. Patient started experiencing this day(s) (3) and it has been constant. improves with No relieving factors improve symptom(s), No exacerbating factors reported . Patient notes fever/chills. Patient did receive the following treatments prior to arrival, none Related Data Home Medications Medication Instructions Recorded Confirmed prenat.vits,yesi,vai-ridg-tcphf 1 tab PO DAILY 04/06/21 11/07/21 albuterol sulfate 90 mcg/actuation 2 puff IH Q6H PRN gm 09/08/21 11/07/21 aerosol inhaler (ProAir HFA) syringe with needle 1 mL 25 gauge #100 ea 10/07/21 11/07/21 x 5/8 (Monoject TB Safety Syringe) enoxaparin 40 mg/0.4 mL 40 mg (0.4 mL) SUBCUT DAILY #4 ml 10/22/21 11/07/21 subcutaneous syringe (Lovenox) dicloxacillin 500 mg capsule 500 mg PO QID 10 Days #40 cap 11/07/21 Previous Rx's Medication Instructions Recorded syringe with needle 1 mL 25 gauge #100 ea 10/07/21 x 5/8 (Monoject TB Safety Syringe) enoxaparin 40 mg/0.4 mL 40 mg (0.4 mL) SUBCUT DAILY #4 ml 10/22/21 subcutaneous syringe (Lovenox) dicloxacillin 500 mg capsule 500 mg PO QID 10 Days #40 cap 11/07/21 Allergies Allergy/AdvReac Type Severity Reaction Status Date / Time oxycodone AdvReac Unknown Nausea and Verified 11/07/21 20:23 vomiting 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 Review of Systems All systems reviewed & are unremarkable except as noted in HPI and below Constitutional Constitutional: Denies weakness Cardiovascular Cardiovascular: Denies chest pain and Denies dyspnea Respiratory Respiratory: Denies cough and Denies dyspnea Gastrointestinal Gastrointestinal: Denies abdominal pain, Denies nausea and Denies vomiting Genitourinary Genitourinary: Denies dysuria Neurologic Neurologic: Denies weakness PFSH All Active Problems (Updated 11/07/21 @ 20:37 by Daniele Sykes MD) Mastitis (Acute) care and examination of lactating mother (Acute) Mild intermittent asthma (Chronic) Anxiety (Chronic) Medical History (Updated 11/07/21 @ 20:37 by Daniele Sykes MD) Asthma Chronic hepatitis B (Unknown) 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 Needs HBIG at delivery Gastroesophageal reflux disease History of venous thromboembolism DVT in Left leg during first . Rx with prophylactic anticoag 2nd . 05/14/20 Rx Enoxaparin 40mg daily. 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 08/23/2020 IUFD at 22 weeks EGA. Misoprostol induction at [facility]. without complications. Surgical History (Updated 01/01/21 @ 16:30 by Corrine Villavicencio RN) S/P wisdom tooth extraction Family History (Updated 12/30/20 @ 10:20 by Dinora Burns) Mother Breast cancer Hypertension Depression Bipolar 1 disorder Father Colon cancer Maternal Grandmother Cerebral aneurysm Maternal Grandfather Leukemia Social History (Updated 04/15/21 @ 14:07 by Shakira Montes LPN) Smoking/Tobacco Use Status: Never Smoking risk assessment performed?: Yes Alcohol Intake: never Substance use type: does not use Household members: spouse and children Number of Children: 2 Communication Needs: None Education Level: college Details: BS in anthropology and psychology Do you need help understanding health information?: Never Pets and animals: Yes Current gender identity: female What is your relationship status?: How often do you talk on the phone with friends or family?: three or more times per week Panel score (0-1 are the most socially isolated patients): 2 What type of physical activity do you participate in: regular exercise Duration: 30-45 minutes/day Frequency: 5-6 times per week Seatbelt use: always Drive intox 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 Date GA/Weeks # Outcome Route Wgt Sex Labor Lgth Anesthes ia Location Prov [facility] 11/04/16 38 No Successful vaginal 3175.147 g Female 6hr [facility] 02/07/19 39 No Successful vaginal 2693.205 g Male 7hrs induction re [facility] 08/23/20 22 No Unsuccessful vaginal 765.437 g Female [facility] 10/21/21 No Successful vaginal Female [facility] Delivery Date: 11/04/16 Last Updated by: Margot James M.D. [place]. DVT during requiring anti-coagulation Delivery Date: 02/07/19 Last Updated by: Margot James M.D. [facility]. prophylactic anticoagulation during Delivery Date: 08/23/20 Last Updated by: Margot James M.D. hydrops/ monosomy diagnosed second trimester. IUFD at 22 weeks. Misoprostol induction of labor with spontaneous vaginal delivery without complications Sadaf Exam Const General: no acute distress Orientation: alert HENMA Head: normal to inspection Ears: external ears normal General nose exam: external nose normal Mouth: moist mucous membranes Eyes General: appearance normal, both eyes and all related structures Neck Neck: normal visual inspection Resp Effort & Inspection: normal respiratory effort and able to speak in complete sentences Cardio Rate: regular rate Skin General skin exam: elasticity normal Neuro General: patient alert and patient oriented x3 Extrem General: normal to inspection Psych Mental Status: mental status grossly normal Course Vital Signs Vital signs: Vital Signs Temperature 36.4 C L 11/07/21 20:21 Pulse 83 11/07/21 20:21 Respiratory Rate 16 11/07/21 20:21 Blood Pressure 130/80 11/07/21 20:21 Pulse Oximetry 98 11/07/21 20:21 Temperature 36.4 C L 11/07/21 20:21 Pulse 83 11/07/21 20:21 Respiratory Rate 16 11/07/21 20:21 Respiratory Effort Non-Labored 11/07/21 20:24 Blood Pressure 130/80 11/07/21 20:21 Pulse Oximetry 98 11/07/21 20:21 Pain Level 8 11/07/21 20:24
[2021-11-07] MEDS: Amox. 875/Clav. 125, 2 TABS/BTL 1 TAB PO (21:04)
== END 2021-11-07 21:07 | disposition home or self-care (01) ==
PROVIDERS: Emergency Provider Emergency Medicine; PCP Internal Medicine
DX: N61.0 Mastitis without abscess (principal)
CPT/HCPCS: 99283

== ENCOUNTER 2021-12-03 10:41 | Outpatient (REF) | payer MEDICAID, SELFPAY ==
--- NOTE | 2021-12-03 09:45 | PAPFT_PTH ---
PATIENT: Jennifer Cason LOC: [facility] U#:[id number] AGE/SX: 31/F ROOM: RE12/03/[address]: Margot James : 1990 BED: DIS: 12/03/2021 SPEC #: [id number] RECD: 12/03/21 12:53 STATUS: ALLEN REQ #: [id number] YAMILEX: 12/03/21 09:[address]: Margot James DEPT: [facility] Cytology RECD BY: Shanta Mosher ENTERED: 12/03/21 12:53 SP TYPE: PAPFT OTHR DR: Tita May MD Tissues: 1 - CX/ENDOCX FOR PAP SMEARS Procedures: PAP THIN PREP/UVM Screening HPV DNA PROBE Comments: [id number]
== END 2021-12-03 10:42 | disposition home or self-care (01) ==
LOC: LBN 10:41
PROVIDERS: PCP Internal Medicine; Visit Provider Obstetrics & Gynecology Gynecology
DX: Z12.4 Encounter for screening for malignant neoplasm of cervix (principal); Z11.51 Encounter for screening for human papillomavirus (HPV)
CPT/HCPCS: 88142; 87624

== ENCOUNTER 2022-08-07 10:39 | Emergency (ER) | payer MEDICAID, SELFPAY ==
[2022-08-07 10:47] VITALS: BP 142/87; PULSE 88; RESP 18; TEMP 36.8; O2SAT 100
[2022-08-07 11:37] LABS: Abs Immature Grans 0.04 10^3/uL (0.0-0.06); Absolute Basophil Count 0.04 10^3/uL (0.0-0.2); Absolute Eosinophil Count 0.36 10^3/uL (0.0-0.7); Absolute Lymphocyte Count 1.06 10^3/uL (1.2-3.4); Absolute Monocyte Count 0.74 10^3/uL (0.1-0.8); Absolute Neutrophil Count 5.88 10^3/uL (1.2-6.7); Basophils % 0.5; Eosinophils % 4.4; HCT 51.4 % (36.0-46.0); HGB 16.4 g/dL (11.2-15.7); Immature Grans % 0.5; Lymphocytes % 13.1; MCH 26.2 pg (27.0-33.0); MCHC 31.9 % (32.0-36.0); MCV 82 fL (80-95); MPV 9.1 fL (8.0-11.0); Monocytes % 9.1; Neutrophils % 72.4; Platelet Count 306 10^3/uL (130-400); RBC 6.27 10^6/uL (3.93-5.22); RDW-SD 41.7 fL; WBC 8.12 10^3/uL (4.4-10.8)
[2022-08-07 11:41] LABS: Bilirubin Color Interference (Negative); Blood Color Interference (Negative); Clarity Sl Cloudy (Clear); Glucose Color Interference mg/dL (Negative); Ketones Color Interference mg/dL (Negative); Leukocyte Esterase Color Interference (Negative); Nitrite Color Interference (Negative); Specific Gravity 1.028 (1.005-1.025); Urobilinogen Color Interference EU/dL (Up TO 0.2)
[2022-08-07 11:51] LABS: RBC >50 HPF (0-2)
[2022-08-07 11:52] LABS: C & S Indicated? Yes; Casts Negative LPF (Negative); Crystals Negative HPF (Negative); Mucus Moderate (Negative)
[2022-08-07 11:54] LABS: Diff Comment RBC Morph Reviewed; RBC Morphology Normal
[2022-08-07 11:56] LABS: ALT 24 U/L (14-59); AST 22 U/L (15-37); Alkaline Phosphatase 65 U/L (46-116); Anion Gap 10.7 mmol/L (3-11); BUN 11 mg/dL (7-18); Bilirubin, Total 0.4 mg/dL (0.2-1.0); CO2 24.3 mmol/L (21.0-32.0); CREATININE 1.1 mg/dL (0.55-1.02); Calcium 8.9 mg/dL (8.5-10.1); Chloride 101 mmol/L (98-107); Estimated GFR 68.47 (mL/min/1.73m2); Glucose 101 mg/dL (74-106); Lipase 98 U/L (73-393); Magnesium 1.8 mg/dL (1.8-2.4); Potassium 3.7 mmol/L (3.5-5.1); Sodium 136 mmol/L (136-145); Total Protein 8.3 g/dL (6.4-8.2)
[2022-08-07] MEDS: Lactated Ringers 1,000 ML 1000 ML IV (12:26)
[2022-08-07] MEDS: Ondansetron 4 MG/2 ML VIAL IVP (12:27)
[2022-08-07 13:43] LABS: C Diff PCR Negative (Negative)
--- NOTE | 2022-08-07 13:53 | W.ED.GENAD ---
Discharge Plan Disposition Patient Disposition: Home Condition: Stable Discharge Details Clinical Impression: Nausea vomiting and diarrhea Primary Care Provider: Tita May ED Provider: Shanta Morrison Home Meds and New Rx's Prescriptions: New ondansetron HCl 4 mg tablet 4 mg PO DAILY 3 Days Qty: 10 0RF Continued multivitamin [Multiple Vitamins] Tablet 1 tab PO DAILY albuterol sulfate [ProAir HFA] 90 mcg/actuation HFA aerosol inhaler 2 puff IH Q6H PRN (Reason: shortness of breath or wheezing) Qty: 1 4RF Discharge Instructions Instructions: Acute Nausea and Vomiting (ED) Additional Instructions: Take the Zofran as needed for nausea and vomiting Jell-O, juice, arielle cora, Gatorade as tolerated, bland diet as needed, banana, applesauce, toast if nausea abates Return earlier should you have worsening pain or persistent vomiting despite Zofran Urine rechecked for blood Recheck with primary care physician on Tuesday Referrals: Tita May MD [Primary Care Provider] - 1 day Discharge Data Discharge Date/Time-TO BE ENTERED AT DEPARTURE: 08/07/22 14:18 Medical Decision Making Patient appears well, labs are consistent with dehydration, received 2 L of LR in emergency department and able to tolerate p.o. Creatinine 1.1 hemoglobin 16, hematocrit 51 Feeling symptomatically improved at time of reassessment, suspect viral illness given the patient's family members have similar symptoms several days ago which is resolved Able to tolerate p.o. at time of discharge home Antiemetics applied for home use [place] diet reviewed Return precautions discussed patient expressed understanding Recheck in 24 to 48 hours recommended Sign Out No HPI General Date/Time Provider Initiated Documentation: 08/07/22 11:09. HPI Narrative: This 31-year-old female presents with nausea, vomiting, diarrhea. Family sick with similar symptoms. Currently on her menstrual period. Denies any abdominal pain aside from just before having nausea and vomiting or diarrhea. Denies any recent antibiotics. Denies chest pain or shortness of breath. Denies fever or chills. Related Data Home Medications Medication Instructions Recorded Confirmed multivitamin (Multiple Vitamins 1 tab PO DAILY 12/03/21 12/04/21 tablet) albuterol sulfate 90 mcg/actuation 2 puff inhalation Q6H PRN 07/05/22 07/05/22 aerosol inhaler (ProAir HFA) shortness of breath or wheezing #1 unit ondansetron HCl 4 mg tablet 4 mg PO DAILY 3 days #10 tabs 08/07/22 Previous Rx's Medication Instructions Recorded albuterol sulfate 90 mcg/actuation 2 puff inhalation Q6H PRN 07/05/22 aerosol inhaler (ProAir HFA) shortness of breath or wheezing #1 unit ondansetron HCl 4 mg tablet 4 mg PO DAILY 3 days #10 tabs 08/07/22 Allergies Allergy/AdvReac Type Severity Reaction Status Date / Time oxycodone AdvReac Unknown Nausea and Verified 07/05/22 10:22 vomiting General Stated Complaint: Nausea/Vomit/Diar LEWIS: 3 Review of Systems All systems reviewed & are unremarkable except as noted in HPI and below PFSH All Active Problems (Updated 08/07/22 @ 14:07 by KAREN Mejia) Nausea vomiting and diarrhea (Acute) Mild intermittent asthma (Chronic) Anxiety (Chronic) Medical History (Updated 08/07/22 @ 14:07 by KAREN Mejia) Asthma Chronic hepatitis B (Unknown) 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 Needs HBIG at delivery Gastroesophageal reflux disease History of venous thromboembolism DVT in Left leg during first . Rx with prophylactic anticoag 2nd . 05/14/20 Rx Enoxaparin 40mg daily. 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 08/23/2020 IUFD at 22 weeks EGA. Misoprostol induction at [facility]. without complications. Surgical History (Updated 01/01/21 @ 16:30 by Corrine Villavicencio RN) S/P wisdom tooth extraction Family History (Updated 12/30/20 @ 10:20 by Dinora Burns) Mother Breast cancer Hypertension Depression Bipolar 1 disorder Father Colon cancer Maternal Grandmother Cerebral aneurysm Maternal Grandfather Leukemia Social History (Updated 12/04/21 @ 17:24 by Margot James MD) Smoking/Tobacco Use Status: Never Smoking risk assessment performed?: Yes Alcohol Intake: never Substance use type: does not use Household members: spouse, children and other Details: H- Jesus, Raysa- Barbara, S-Joao, Raysa-Tahira. 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 Pets and animals: Yes Current gender identity: female What is your relationship status?: How often do you talk on the phone with friends or family?: three or more times per week Panel score (0-1 are the most socially isolated patients): 2 What type of physical activity do you participate in: regular exercise Duration: 30-45 minutes/day Frequency: 5-6 times per week Seatbelt use: always Drive intox or ride w/intox laundry route driver: No Working smoke detector in home: Yes Fire extinguisher in home: Yes Carbon monox detector in home: Yes Do you feel safe at home: Yes Do you feel safe in your relationship?: Yes Female Reproductive History Menstrual Age of Menarche: 11 Duration of menses: 3-5 days History History 4 Para 3 Hx # Term Pregnancies 3 Multiple births Hx # Pregnancies 1 Ectopic pregnancies AB induced Hx Number of Living Children 3 AB spontaneous Past Pregnancies Del. Date GA/Weeks # Preg Succ Route Wgt Sex Labor Lgth Anesthesia Location [facility] 11/04/16 38 No vaginal 3175.147 g Female 6hr [facility] 02/07/19 39 No vaginal 2693.205 g Male 7hrs induction [facility] 08/23/20 22 No vaginal 765.437 g Female [facility] 10/21/21 40 No vaginal 3486.991 g Female Margot James Delivery Date: 11/04/16 Last Updated by: Navya Hampton. DVT during requiring anti-coagulation Delivery Date: 02/07/19 Last Updated by: Navya Hampton. prophylactic anticoagulation during Delivery Date: 08/23/20 Last Updated by: Margot James M.D. hydrops/ monosomy diagnosed second trimester. IUFD at 22 weeks. Misoprostol induction of labor with spontaneous vaginal delivery without complications Sadaf Exam Const General: cooperative, comfortable and no acute distress HENMT Other: moist mucous membranes Eyes Pupils: PERRL Resp Effort & Inspection: normal respiratory effort Auscultation: clear to auscultation bilaterally Cardio Rate: regular rate Rhythm: regular rhythm GI Inspection: normal to inspection Other: Nontender abdominal exam Skin General skin exam: no rashes or lesions noted Neuro General: patient alert and patient oriented x3 Course Vital Signs Vital signs: Vital Signs Temperature 36.8 C 08/07/22 10:47 Pulse 88 08/07/22 10:47 Respiratory Rate 18 08/07/22 10:47 Blood Pressure 142/87 H 08/07/22 10:47 Pulse Oximetry 100 08/07/22 10:47 Temperature 36.8 C 08/07/22 10:47 Temperature Source Oral 08/07/22 10:47 Pulse 88 08/07/22 10:47 Respiratory Rate 18 08/07/22 10:47 Respiratory Effort 08/07/22 10:50 Blood Pressure 142/87 H 08/07/22 10:47 Blood Pressure Position Supine 08/07/22 10:47 Pulse Oximetry 100 08/07/22 10:47 Oxygen Delivery Method Room Air 08/07/22 10:47 Oxygen Flow Rate 0 08/07/22 10:47 Pain Level 5 08/07/22 10:47 Lab/Test Results Lab/Test Results: 08/07/22 11:33 Urine - Reflex from Ua Urine Culture - Pending Laboratory Tests Range/Units 08/07/22 08/07/22 08/07/22 11:30 11:30 11:33 WBC (4.4-10.8) 10^3/uL 8.12 RBC (3.93-5.22) 10^6/uL 6.27 H Hgb (11.2-15.7) g/dL 16.4 H Hct (36.0-46.0) % 51.4 H MCV (80-95) fL 82 MCH (27.0-33.0) pg 26.2 L MCHC (32.0-36.0) % 31.9 L RDW (11.7-14.6) % 14.0 Plt Count (130-400) 10^3/uL 306 MPV (8.0-11.0) fL 9.1 Immature Gran % 0.5 Neutrophils % 72.4 Lymphocytes % 13.1 Monocytes % 9.1 Eosinophils % 4.4 Basophils % 0.5 Nucleated RBC % (0.0-0.3) % 0.0 Absolute Neutrophils (1.2-6.7) 10^3/uL 5.88 Absolute Lymphocytes (1.2-3.4) 10^3/uL 1.06 L Absolute Monocytes (0.1-0.8) 10^3/uL 0.74 Absolute Eosinophils (0.0-0.7) 10^3/uL 0.36 Absolute Basophils (0.0-0.2) 10^3/uL 0.04 RBC Morphology Normal Sodium (136-145) mmol/L 136 Potassium (3.5-5.1) mmol/L 3.7 Chloride (98-107) mmol/L 101 Carbon Dioxide (21.0-32.0) mmol/L 24.3 Anion Gap (3-11) mmol/L 10.7 BUN (7-18) mg/dL 11 Creatinine (0.55-1.02) mg/dL 1.1 H Est GFR (CKD-EPI 2020) (mL/min/1.73m2) 68.47 Glucose (74-106) mg/dL 101 Calcium (8.5-10.1) mg/dL 8.9 Magnesium (1.8-2.4) mg/dL 1.8 Total Bilirubin (0.2-1.0) mg/dL 0.4 AST (15-37) U/L 22 ALT (14-59) U/L 24 Alkaline Phosphatase (46-116) U/L 65 Total Protein (6.4-8.2) g/dL 8.3 H Albumin (3.4-5.0) g/dL 4.0 Lipase (73-393) U/L 98 Urine Color (Yellow) Red Urine Clarity (Clear) Sl Cloudy Urine pH (5-8) Ur Specific [place] (1.005-1.025) 1.028 H Urine Protein (Negative) mg/dL Color Interference Urine Ketones (Negative) mg/dL Color Interference Urine Blood (Negative) Color Interference Urine Nitrite (Negative) Color Interference Urine Bilirubin (Negative) Color Interference Urine Urobilinogen (Up TO 0.2) EU/dL Color Interference Ur Leukocyte Esterase (Negative) Color Interference Urine RBC (0-2) HPF >50 H Urine WBC (0-5) HPF Ur Epithelial Cells (Negative) HPF Urine Crystals (Negative) HPF Negative Urine Bacteria (Negative) HPF Urine Casts (Negative) LPF Negative Urine Mucus (Negative) Moderate Ur Culture Indicated? Yes Urine Glucose (Negative) mg/dL Color Interference Stl C.difficile Tox PCR (Negative) Range/Units 08/07/22 12:54 WBC (4.4-10.8) 10^3/uL RBC (3.93-5.22) 10^6/uL Hgb (11.2-15.7) g/dL Hct (36.0-46.0) % MCV (80-95) fL MCH (27.0-33.0) pg MCHC (32.0-36.0) % RDW (11.7-14.6) % Plt Count (130-400) 10^3/uL MPV (8.0-11.0) fL Immature Gran % Neutrophils % Lymphocytes % Monocytes % Eosinophils % Basophils % Nucleated RBC % (0.0-0.3) % Absolute Neutrophils (1.2-6.7) 10^3/uL Absolute Lymphocytes (1.2-3.4) 10^3/uL Absolute Monocytes (0.1-0.8) 10^3/uL Absolute Eosinophils (0.0-0.7) 10^3/uL Absolute Basophils (0.0-0.2) 10^3/uL RBC Morphology Sodium (136-145) mmol/L Potassium (3.5-5.1) mmol/L Chloride (98-107) mmol/L Carbon Dioxide (21.0-32.0) mmol/L Anion Gap (3-11) mmol/L BUN (7-18) mg/dL Creatinine (0.55-1.02) mg/dL Est GFR (CKD-EPI 2020) (mL/min/1.73m2) Glucose (74-106) mg/dL Calcium (8.5-10.1) mg/dL Magnesium (1.8-2.4) mg/dL Total Bilirubin (0.2-1.0) mg/dL AST (15-37) U/L ALT (14-59) U/L Alkaline Phosphatase (46-116) U/L Total Protein (6.4-8.2) g/dL Albumin (3.4-5.0) g/dL Lipase (73-393) U/L Urine Color (Yellow) Urine Clarity (Clear) Urine pH (5-8) Ur Specific [place] (1.005-1.025) Urine Protein (Negative) mg/dL Urine Ketones (Negative) mg/dL Urine Blood (Negative) Urine Nitrite (Negative) Urine Bilirubin (Negative) Urine Urobilinogen (Up TO 0.2) EU/dL Ur Leukocyte Esterase (Negative) Urine RBC (0-2) HPF Urine WBC (0-5) HPF Ur Epithelial Cells (Negative) HPF Urine Crystals (Negative) HPF Urine Bacteria (Negative) HPF Urine Casts (Negative) LPF Urine Mucus (Negative) Ur Culture Indicated? Urine Glucose (Negative) mg/dL Stl C.difficile Tox PCR (Negative) Negative POC- Test(urine) Negative PAWSS Have you Been Recently Intoxicated or Drunk Within the Last 30 days?: No Have you Ever Experienced Previous Episodes of Alcohol Withdrawal?: No Have you ever Experienced Withdrawal Seizures?: No Have you ever Experienced Delirium Tremens(DT)s?: No Have you ever undergone Alcohol Rehabilitation Treatment (i.e, inpt ot outpatient treatment programs)?: No Have you ever Experienced Blackouts?: No Have you ever Combined Alcohol with other Downers within the last 90 days?: No Have you ever Combined Alcohol with any other Substance of Abuse during the last 90 days?: No Positive Blood Alcohol level on Presentation? [PCS.BAL]: No Evidence of Increased Autonomic Activity (i.e. HR>120, tremor, sweating, agitation, nausea)?: No Result: 0
[2022-08-07] MEDS: Ondansetron 4 MG/2 ML VIAL (14:17)
[2022-08-08 11:50] LABS: Campylobacter PCR Negative (Negative); Salmonella PCR Negative (Negative); Shiga Toxin PCR Negative (Negative); Shigella/Enteroinvasive Ecoli Negative (Negative)
== END 2022-08-07 14:18 | disposition home or self-care (01) ==
PROVIDERS: Emergency Provider Physician Assistant; PCP Internal Medicine
DX: R11.2 Nausea with vomiting, unspecified (principal); R19.7 Diarrhea, unspecified
CPT/HCPCS: 80053; 83690; 87493; 87505; 96361; 96374; 99284; 81003; 81015; 83735; 85025; 87086; J2405

== ENCOUNTER 2023-11-11 07:58 | Emergency (ER) | payer MEDICAID, SELFPAY ==
[2023-11-11 08:00] VITALS: BP 147/87; PULSE 81; RESP 18; TEMP 36.6; O2SAT 95
--- NOTE | 2023-11-11 08:30 | DI.RAD_ITS ---
Exam(s) XR KNEE LT 3V AP,LAT,BONNIE EXAM: XR KNEE LT 3V AP,LAT,BONNIE CLINICAL HISTORY: Anterior trauma. TECHNIQUE: 2D digital imaging was performed of the left knee. Four images were obtained. AP, later al and PA tunnel views were obtained. COMPARISON: No exams were available for comparison FINDINGS: A BB was placed on the skin surface in the area of concern. BONES: No acute fracture is present. No bony destructive lesion is seen. JOINTS: The knee is normally aligned. No joint effusion is seen. No loose body. SOFT TISSUE: Normal. IMPRESSION: Normal radiographs of the left knee. DATA REPOSITORY: RADIATION DOSE DELIVERED:
--- NOTE | 2023-11-11 08:30 | RT.EKG_ITS ---
APPROVED REPORT Exam: Resting ECG Reason for Exam: Palpitations, anxiety Patient Location: E HR:82 bpm ECG Measurements Heart Rate 82 AXIS ID 132 P 49 QRSd 84 QRS 35 QT 358 T 18 QTc 417 Conclusion Sinus rhythm...normal P axis, V-rate 60- 99 Narrow complex normal sinus rhythm at a rate of 82. Normal axis. Intervals within normal limits. N o ST segment abnormalities. T wave flattening in lead III. No acute injury pattern. No prior for c omparison.
[2023-11-11 08:38] VITALS: RESP 24
--- NOTE | 2023-11-11 08:44 | W.ED.GENAD ---
Discharge Plan Disposition Patient Disposition: Home Discharge Details Clinical Impression: Anxiety, Contusion of left knee and lower leg Primary Care Provider: Cee Shah ED Provider: Anjel Gonzales Home Meds and New Rx's Prescriptions: New hydroxyzine HCl 25 mg tablet 25 mg PO TID PRN (Reason: anxiety) Qty: 15 0RF Continued multivitamin [Multiple Vitamins] Tablet 1 tab PO DAILY albuterol sulfate [ProAir HFA] 90 mcg/actuation HFA aerosol inhaler 2 puff IH Q6H PRN (Reason: shortness of breath or wheezing) Qty: 1 4RF Discharge Instructions Instructions: Contusion in Adults (ED), Anxiety (ED) Additional Instructions: Continue to monitor symptoms and return to the emergency department for any new or significant worsening of your condition. Otherwise follow-up with primary care provider if you continue to have anxiety or your knee is not healing well. You may continue to use [id number] medication as needed for pain and discomfort along with Jaya wrap for support. Referrals: Cee Shah, HANDICAPPED TEACHER [Primary Care Provider] - (As needed for reassessment) HPI General Mode of arrival: ambulatory. Date/Time Provider Initiated Documentation: 11/11/23 08:04. Limitations to Documentation: no limitations. Information obtained by: patient, family and RN notes reviewed. History of Present Illness 33 year old F presents to the emergency department with the chief complaint of Anxiety, palpitations, chest tightness, left leg pain, described as moderate, Patient started experiencing this day(s) (3) and it has been constant. No relieving factors improve symptom(s), No exacerbating factors reported . Patient did receive the following treatments prior to arrival, NSAID Related Data Home Medications Medication Instructions Recorded Confirmed multivitamin (Multiple Vitamins 1 tab PO DAILY 12/03/21 11/11/23 tablet) albuterol sulfate 90 mcg/actuation 2 puff inhalation Q6H PRN 02/08/23 11/11/23 aerosol inhaler (ProAir HFA) shortness of breath or wheezing #1 unit hydroxyzine HCl 25 mg tablet 25 mg PO TID PRN anxiety #15 tabs 11/11/23 Previous Rx's Medication Instructions Recorded albuterol sulfate 90 mcg/actuation 2 puff inhalation Q6H PRN 02/08/23 aerosol inhaler (ProAir HFA) shortness of breath or wheezing #1 unit hydroxyzine HCl 25 mg tablet 25 mg PO TID PRN anxiety #15 tabs 11/11/23 Allergies Allergy/AdvReac Type Severity Reaction Status Date / Time oxycodone AdvReac Unknown Nausea and Verified 11/11/23 08:06 vomiting General Stated Complaint: Anxiety LEWIS: 3 Review of Systems Constitutional Constitutional: Denies chills, Denies fever(s), Denies headache(s) and Reports malaise ENT Ears, Nose, Mouth, and Throat: Denies headache(s) Cardiovascular Cardiovascular: Reports chest pain, Denies syncope, Reports lightheadedness and Reports dyspnea Respiratory Respiratory: Denies cough and Reports dyspnea Gastrointestinal Gastrointestinal: Denies abdominal pain Integumentary/Breasts Skin/Breast: Reports unusual bruising Neurologic Neurologic: Denies syncope and Denies headache(s) Psychiatric Psychiatric: Reports abnormal sleep pattern and Reports anxiety Exam Const General: cooperative, no acute distress and not ill appearing Orientation: alert, awake and oriented x3 HENMT Mouth: moist mucous membranes Resp Effort & Inspection: normal respiratory effort, able to speak in complete sentences and no respiratory distress Cardio Rate: regular rate Rhythm: regular rhythm Heart Sounds: S1 normal and S2 normal Skin General skin exam: no rashes or lesions noted Neuro General: patient alert, patient awake, patient oriented x3, moves all extremities and no focal motor deficits Sensory Exam: no sensory deficits noted Extrem General: normal exam except as noted Left lower extremity: knee Details: tenderness Location: of the pre-patellar area, normal ROM, knee ligament exam normal and ecchymosis proximal lower leg anteromedial ; no swelling, no abrasions and no lacerations Course Vital Signs Vital signs: Vital Signs Temperature 36.6 C 11/11/23 08:00 Pulse 81 11/11/23 08:00 Respiratory Rate 18 11/11/23 08:00 Blood Pressure 147/87 H 11/11/23 08:00 Pulse Oximetry 95 11/11/23 08:00 Temperature 36.6 C 11/11/23 08:00 Temperature Source Tympanic 11/11/23 08:00 Pulse 81 11/11/23 08:00 Respiratory Rate 18 11/11/23 08:00 Blood Pressure 147/87 H 11/11/23 08:00 Blood Pressure Position Sitting 11/11/23 08:00 Pulse Oximetry 95 11/11/23 08:00 Oxygen Delivery Method Room Air 11/11/23 08:00 Oxygen Flow Rate 0 11/11/23 08:00 Medical Decision Making Patient presenting to the emergency department for chief complaint of headache, chest discomfort, palpitations, insomnia. Patient reports 2 weeks ago she fell on the ice injuring her left knee. Was a slow recovery but had been recovering but over the last 3 nights she has had a increase anxiety, palpitations, chest tightness, and insomnia. She does state history of DVT left lower extremity during which she is concerned about but has never had this significant level of anxiety. She does state that she felt a little lightheaded and short of breath walking in today. Patient has no other contributing past medical history, is no longer on anticoagulation after being cleared by hematology years ago, no other contributing past medical history. Physical exam shows prepatellar tenderness to palpation, ecchymosis to the left knee, no tenderness to the deep venous system including the calf, posterior knee, or medial thigh. Given patient's overall symptoms will check EKG lab work and an x-ray of the lower extremity but I have low suspicion at this time of a DVT. Patient denies any need for pain medication or other medication pending results. Please see physician interpretation for full interpretation of EKG but upon my review patient is in sinus rhythm, rate of 82 no acute signs of STEMI, otherwise nondiagnostic, will continue to monitor Reviewed patient's labs and CBC is overall nondiagnostic, CMP shows slightly elevated anion gap of 12.8, otherwise again nondiagnostic, initial troponin is negative/nondetected, TSH of 1.63, urinalysis shows contaminated specimen but small amount of leukocyte esterase and 10-20 WBCs. Will further discuss urinary symptoms with patient. D-dimer considered negative at 186. X-ray imaging of left knee reviewed along with radiologist interpretation and shows no acute findings. Reassessed patient and she does state significant reassurance after being informed of lab results. She does state that she feels a lot of her anxiety was worrying about potential blood clot which I reassured her that her exam is not consistent with along with D-dimer level. Do not feel that any further workup is needed, do not feel that delta troponin is needed given the patient has had chest discomfort for greater than 6 hours, will prescribe patient Atarax as needed to help with any anxiety that is residual along with sleep. Discussed conservative management of knee injury. After discussion of diagnosis and plan of care patient has no further needs, questions, or concerns and states clear understanding to return to the emergency department for any worsening symptoms. This documentation was generated using [employer] system, please disregard any oddities of phrase or misspellings. Imaging Data Radiologic Study: Imaging: X-Ray Radiologist's impression: Exam(s) XR KNEE LT 3V AP,LAT,BONNIE EXAM: XR KNEE LT 3V AP,LAT,BONNIE CLINICAL HISTORY: Anterior trauma. TECHNIQUE: 2D digital imaging was performed of the left knee. Four images were obtained. AP, lateral and PA tunnel views were obtained. COMPARISON: No exams were available for comparison FINDINGS: A BB was placed on the skin surface in the area of concern. BONES: No acute fracture is present. No bony destructive lesion is seen. JOINTS: The knee is normally aligned. No joint effusion is seen. No loose body. SOFT TISSUE: Normal. IMPRESSION: Normal radiographs of the left knee. Lab Data Lab results reviewed: Yes I reviewed the patient's lab results. Quality:SDOH Health Related Social Needs: No Data to Display PFSH All Active Problems (Updated 11/11/23 @ 10:23 by Anjel Gonzales NP) Contusion of left knee and lower leg (Acute) Mild intermittent asthma (Chronic) Anxiety (Chronic) Medical History Mastitis care and examination of lactating mother Rh deficiency Asthma Obesity, Class I, BMI 30.0-34.9 (see actual BMI) Ovarian cyst Gastroesophageal reflux disease Chronic hepatitis B (Unknown) 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 08/23/2020 IUFD at 22 weeks EGA. Misop[place] [facility] without complications. History of venous thromboembolism DVT in Left leg during first . Rx with prophylactic anticoag 2nd . 05/14/20 Rx Enoxaparin 40mg daily. Surgical History S/P wisdom tooth extraction Family History Mother Breast cancer Hypertension Depression Bipolar 1 disorder Father Colon cancer Maternal Grandmother Cerebral aneurysm Maternal Grandfather Leukemia Social History Smoking/Tobacco Use Status: Never Smoking risk assessment performed?: Yes Alcohol Intake: never Substance use type: does not use Household members: spouse, children and other Details: Sy- Sue Lee, Kelvin, Reta. 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 Pets and animals: Yes Current gender identity: female What is your relationship status?: How often do you talk on the phone with friends or family?: three or more times per week Panel score (0-1 are the most socially isolated patients): 2 What type of physical activity do you participate in: regular exercise Duration: 30-45 minutes/day Frequency: 5-6 times per week Seatbelt use: always Drive intox or ride w/intox garbage truck driver: No Working smoke detector in home: Yes Fire extinguisher in home: Yes Carbon monox detector in home: Yes Do you feel safe at home: Yes Do you feel safe in your relationship?: Yes Female Reproductive History Menstrual Age of Menarche: 11 Duration of menses: 3-5 days History History 4 Para 3 Hx # Term Pregnancies 3 Multiple births Hx # Pregnancies 1 Ectopic pregnancies AB induced Hx Number of Living Children 3 AB spontaneous Past Pregnancies Del. Date GA/Weeks # Preg Succ Route Wgt Sex Labor Lgth Anesthesia Location [facility] 11/04/16 38 No vaginal 3175.147 g Female 6hr [facility] 02/07/19 39 No vaginal 2693.205 g Male 7hrs induction [facility] 08/23/20 22 No vaginal 765.437 g Female [facility] 10/21/21 40 No vaginal 3486.991 g Female Margot James Delivery Date: 11/04/16 Last Updated by: Navya Hampton. DVT during requiring anti-coagulation Delivery Date: 02/07/19 Last Updated by: Navya Hapmton. prophylactic anticoagulation during Delivery Date: 08/23/20 Last Updated by: Margot James M.D. hydrops/ monosomy diagnosed second trimester. IUFD at 22 weeks. Misoprostol induction of labor with spontaneous vaginal delivery without complications Sadaf
[2023-11-11 08:45] VITALS: BP 130/69; PULSE 84; O2SAT 96
[2023-11-11 09:13] LABS: Abs Immature Grans 0.03 10^3/uL (0.0-0.06); Absolute Basophil Count 0.03 10^3/uL (0.0-0.2); Absolute Eosinophil Count 0.07 10^3/uL (0.0-0.7); Absolute Lymphocyte Count 1.82 10^3/uL (1.2-3.4); Absolute Neutrophil Count 7.47 10^3/uL (1.2-6.7); Basophils % 0.3; Eosinophils % 0.7; HCT 44.1 % (36.0-46.0); HGB 14.8 g/dL (11.2-15.7); Immature Grans % 0.3; Lymphocytes % 18.2; MCHC 33.6 % (32.0-36.0); MCV 83 fL (80-95); MPV 9.1 fL (8.0-11.0); Neutrophils % 74.5; Platelet Count 313 10^3/uL (130-400); RBC 5.29 10^6/uL (3.93-5.22); RDW 13.3 % (11.7-14.6); WBC 10.02 10^3/uL (4.4-10.8)
[2023-11-11 09:32] LABS: Bilirubin Negative (Negative); Blood Negative (Negative); Clarity Sl Cloudy (Clear); Glucose Negative (Negative); Ketones Negative (Negative); Leukocyte Esterase Small (Negative); Nitrite Negative (Negative); Urobilinogen 0.2 mg/dL (Up to 0.2)
[2023-11-11 09:38] LABS: ALT 25 U/L (14-59); AST 16 U/L (15-37); Alkaline Phosphatase 43 U/L (46-116); Anion Gap 12.8 mmol/L (3-11); BUN 6 mg/dL (7-18); Bilirubin, Total 0.7 mg/dL (0.2-1.0); CO2 22.2 mmol/L (21.0-32.0); CREATININE 0.9 mg/dL (0.55-1.02); Calcium 9.2 mg/dL (8.5-10.1); Chloride 105 mmol/L (98-107); Estimated GFR 86.03 (mL/min/1.73m2); Glucose 121 mg/dL (74-106); Magnesium 1.9 mg/dL (1.8-2.4); Potassium 3.7 mmol/L (3.5-5.1); Sodium 140 mmol/L (136-145); TSH (W/Ref FT4) 1.63 uIU/mL (0.36-3.74); Total Protein 7.6 g/dL (6.4-8.2); Troponin I < 50 ng/L (< or =60)
[2023-11-11 09:47] LABS: Bacteria Few HPF (Negative); C & S Indicated? No/Sq. Contamination; Epithelial Cells Moderate HPF (Negative)
[2023-11-11 09:53] LABS: D-Dimer 186 ng/mlFEU (<500)
== END 2023-11-11 10:54 | disposition home or self-care (01) ==
PROVIDERS: Emergency Provider Nurse Practitioner Family; PCP Nurse Practitioner
DX: F41.9 Anxiety disorder, unspecified (principal); S80.02XA Contusion of left knee, initial encounter; W00.9XXA Unspecified fall due to ice and snow, initial encounter
CPT/HCPCS: 73562; 80053; 93005; 99284; 81003; 81015; 83735; 84443; 84484; 85025; 85379; 93010

== ENCOUNTER 2024-03-21 11:55 | Outpatient (CLI) | payer MEDICAID, SELFPAY ==
[2024-03-21 12:27] LABS: Abs Immature Grans 0.05 10^3/uL (0.0-0.06); Absolute Basophil Count 0.05 10^3/uL (0.0-0.2); Absolute Eosinophil Count 0.19 10^3/uL (0.0-0.7); Absolute Lymphocyte Count 2.03 10^3/uL (1.2-3.4); Absolute Monocyte Count 0.71 10^3/uL (0.1-0.8); Absolute Neutrophil Count 7.59 10^3/uL (1.2-6.7); Basophils % 0.5 %; Eosinophils % 1.8 %; HCT 49.3 % (36.0-46.0); HGB 16.6 g/dL (11.2-15.7); Immature Grans % 0.5 %; Lymphocytes % 19.1 %; MCH 29.4 pg (27.0-33.0); MCHC 33.7 % (32.0-36.0); MCV 87 fL (80-95); MPV 9.5 fL (8.0-11.0); Monocytes % 6.7 %; Neutrophils % 71.4 %; Platelet Count 322 10^3/uL (130-400); RBC 5.65 10^6/uL (3.93-5.22); RDW-SD 41.6 fL; WBC 10.62 10^3/uL (4.4-10.8)
[2024-03-21 13:10] LABS: ALT 30 U/L (14-59); AST 26 U/L (15-37); Albumin 4.2 g/dL (3.4-5.0); Alkaline Phosphatase 45 U/L (46-116); Anion Gap 10.6 mmol/L (3-11); BUN 9 mg/dL (7-18); CO2 25.4 mmol/L (21.0-32.0); CREATININE 1.1 mg/dL (0.55-1.02); Calcium 9.6 mg/dL (8.5-10.1); Chloride 103 mmol/L (98-107); Estimated GFR 67.62 (mL/min/1.73m2); Glucose 98 mg/dL (74-106); Potassium 4.5 mmol/L (3.5-5.1); Sodium 139 mmol/L (136-145); Total Protein 8.1 g/dL (6.4-8.2)
== END 2024-03-21 11:56 | disposition home or self-care (01) ==
LOC: LBO 11:56
PROVIDERS: PCP Family Medicine; Visit Provider Nurse Practitioner Adult Health
DX: K20.80 Other esophagitis without bleeding (principal); T50.905A Adverse effect of unspecified drugs, medicaments and biological substances, initial encounter; R09.89 Other specified symptoms and signs involving the circulatory and respiratory systems; J45.20 Mild intermittent asthma, uncomplicated
CPT/HCPCS: 36415; 80053; 85025

== ENCOUNTER 2024-03-21 13:01 | Outpatient (REF) | payer MEDICAID, SELFPAY | END 2024-03-21 13:02 | disposition home or self-care (01) | LOC: LBN 13:01 | PROVIDERS: PCP Family Medicine; Referring Provider Nurse Practitioner Adult Health; Visit Provider Nurse Practitioner Adult Health | DX: R30.0 Dysuria; R39.198 Other difficulties with micturition | CPT/HCPCS: 87086 ==

== ENCOUNTER 2024-10-22 13:55 | Outpatient (CLI) | payer MEDICAID, SELFPAY ==
--- NOTE | 2024-10-22 11:45 | DI.US_ITS ---
Exam(s) US PELVIS TRANSVAGINAL EXAM: US PELVIS TRANSVAGINAL CLINICAL HISTORY: N94.89 h/o ovarian cyst; acute L ovary pain TECHNIQUE: Transabdominal and transvaginal imaging was performed using standard protocol. COMPARISON: No exams were available for comparison FINDINGS: Bladder is unremarkable as visualized. UTERUS: Anteverted. 9.3 x 5.4 x 5.2 cm Endometrium: 14 mm. Homogeneous. Myometrium: Unremarkable. Cervix: Unremarkable. OVARIES: Right: Cyst or mass: None. Left: Not visualized DOPPLER: Color: Symmetric and uniform flow to both ovaries. No hyperemia. CUL-DE-SAC: Free fluid: None. IMPRESSION: 1. Normal-appearing uterus with endometrial stripe within normal limits. 2. Unremarkable right ovary. Left ovary not visualized DATA REPOSITORY:
== END 2024-10-22 14:15 ==
LOC: DI 13:56
PROVIDERS: PCP Family Medicine; Visit Provider Nurse Practitioner Adult Health
DX: N94.89 Other specified conditions associated with female genital organs and menstrual cycle (principal)
CPT/HCPCS: 76830; 76856

== ENCOUNTER 2025-03-13 14:14 | Outpatient (REF) | payer MEDICAID, SELFPAY ==
[2025-03-14 11:46] LABS: Chlamydia Result Negative (Negative); GC Result Negative (Negative)
== END 2025-03-13 14:15 | disposition home or self-care (01) ==
LOC: LBN 14:14
PROVIDERS: Advanced Practice Midwife; PCP Nurse Practitioner Adult Health; Visit Provider Obstetrics & Gynecology
DX: Z34.92 Encounter for supervision of normal pregnancy, unspecified, second trimester (principal); Z3A.12 12 weeks gestation of pregnancy
CPT/HCPCS: 87491; 87591; 87086

== ENCOUNTER 2025-03-13 14:49 | Outpatient (CLI) | payer MEDICAID, SELFPAY ==
[2025-03-13 14:44] LABS: Abs Immature Grans 0.06 10^3/uL (0.0-0.06); Absolute Basophil Count 0.04 10^3/uL (0.0-0.2); Absolute Eosinophil Count 0.17 10^3/uL (0.0-0.7); Absolute Monocyte Count 0.58 10^3/uL (0.1-0.8); Absolute Neutrophil Count 7.77 10^3/uL (1.2-6.7); Basophils % 0.4 %; Eosinophils % 1.5 %; HCT 39.4 % (36.0-46.0); HGB 13.2 g/dL (11.2-15.7); Immature Grans % 0.5 %; Lymphocytes % 21.8 %; MCH 28.9 pg (27.0-33.0); MCHC 33.5 % (32.0-36.0); MCV 86 fL (80-95); MPV 9.8 fL (8.0-11.0); Monocytes % 5.3 %; Neutrophils % 70.5 %; Platelet Count 254 10^3/uL (130-400); RBC 4.56 10^6/uL (3.93-5.22); RDW 12.8 % (11.7-14.6); RDW-SD 40.5 fL; WBC 11.02 10^3/uL (4.4-10.8)
[2025-03-13 15:12] LABS: Hemoglobin A1C 5.4 % (<5.7)
[2025-03-13 15:28] LABS: TSH (W/Ref FT4) 1.31 uIU/mL (0.36-3.74)
[2025-03-14 10:56] LABS: Varicella IgG Antibody Positive (See Note)
[2025-03-14 11:04] LABS: Rubella IgG Ab (UVM) Positive (See Note)
[2025-03-14 11:26] LABS: Hepatitis C Ab w Rflx HCV PCR Negative (Negative)
[2025-03-14 12:08] LABS: Hepatitis B Surface Ag Positive (Negative)
[2025-03-14 12:52] LABS: HIV-1/2 Ag & Ab Screen Negative (Negative)
[2025-03-17 13:08] LABS: Syphilis IgG w/Reflex Nonreactive (Nonreactive)
== END 2025-03-13 14:50 | disposition home or self-care (01) ==
LOC: LBO 14:49
PROVIDERS: PCP Nurse Practitioner Adult Health; Visit Provider Advanced Practice Midwife
DX: Z34.91 Encounter for supervision of normal pregnancy, unspecified, first trimester (principal)
CPT/HCPCS: 36415; 86787; 86803; 86850; 86900; 86901; 87340; 87389; 83036; 84443; 85025; 86762; 86780

== ENCOUNTER 2025-05-06 02:34 | Outpatient (CLI) | payer MEDICAID, SELFPAY ==
--- NOTE | 2025-05-06 11:30 | DI.US_ITS ---
Exam(s) US OB 2-3 TRIMESTER EXAM: US OB 2-3 TRIMESTER CLINICAL HISTORY: 19 wk anatomy survey,z34.90. TECHNIQUE: Transabdominal obstetrical ultrasound was performed. COMPARISON: US POCUS EXAM from 02/12/2025 FINDINGS: There is a single viable intrauterine gestation with cardiac activity identified-145 bpm. Amniotic fluid: There is a normal amount of amniotic fluid. Placental location: The placenta is posterior grade 1,with no evidence of placenta previa.The distance from the tip of placenta to the internal cervical os is 4.9 cm. ANATOMY: A 3 vessel umbilical cord is seen. A four-chamber cardiac view was obtained. Right and left ventricular outflow tracts were imaged. There are no obvious abnormalities of the spinal column evident. There is no obvious abnormality of the anterior abdominal wall. stomach and urinary bladder are identified and there is no evidence of hydronephrosis. No abnormalities of the upper lip region are identified. No evidence of choroid plexus cysts in the brain. Dating parameters place this at approximately 19 weeks and 3 days gestational age. BPD measures 19 weeks and 4 days HC measures 19 weeks and 2 days AC measures 19 weeks and 1 day FL measures weeks and 4 days Estimated weight is 287 gm-0 pounds, 10 ounces Fetus is at the 20th percentile on the Hadlock scale. IMPRESSION:: Single viable intrauterine gestation which is approximately 19 weeks and 3 days gestational age, implying an MACO of 09/27/2025. There are no obvious anomalies evident on today's study. The placenta is posterior with no evidence of placenta previa. There is a normal amount of amniotic fluid. DATA REPOSITORY:
== END 2025-05-06 02:54 ==
LOC: DI 02:34
PROVIDERS: PCP Nurse Practitioner Adult Health; Visit Provider Advanced Practice Midwife
DX: Z34.92 Encounter for supervision of normal pregnancy, unspecified, second trimester (principal); Z3A.16 16 weeks gestation of pregnancy
CPT/HCPCS: 76805

== ENCOUNTER 2025-07-01 03:36 | Outpatient (CLI) | payer MEDICAID, SELFPAY ==
[2025-07-01 10:07] LABS: Abs Immature Grans 0.36 10^3/uL (0.0-0.06); HCT 37.4 % (36.0-46.0); HGB 12.3 g/dL (11.2-15.7); Immature Grans % 2.5 %; MCH 28.5 pg (27.0-33.0); MCHC 32.9 % (32.0-36.0); MCV 87 fL (80-95); MPV 9.4 fL (8.0-11.0); Platelet Count 237 10^3/uL (130-400); RBC 4.32 10^6/uL (3.93-5.22); RDW 12.4 % (11.7-14.6); RDW-SD 39.5 fL; WBC 14.53 10^3/uL (4.4-10.8)
[2025-07-01 10:11] LABS: Glucose,1 Hr (Glucola) 90 mg/dL (80-140)
== END 2025-07-01 03:37 | disposition home or self-care (01) ==
LOC: LBO 03:36
PROVIDERS: PCP Nurse Practitioner Adult Health; Visit Provider Obstetrics & Gynecology
DX: Z34.93 Encounter for supervision of normal pregnancy, unspecified, third trimester (principal); O26.893 Other specified pregnancy related conditions, third trimester; Z67.91 Unspecified blood type, Rh negative
CPT/HCPCS: 36415; 82950; 86850; 86900; 86901; 85025

== ENCOUNTER → 2025-08-02 02:58 | Outpatient (CLI) | payer MEDICAID, SELFPAY ==
--- NOTE | 2025-08-02 07:15 | DI.US_ITS ---
Exam(s) US OB STAN WEIGHT EXAM: US OB STAN WEIGHT CLINICAL HISTORY: growth,ADVANCED MATERNAL AGE,o09.529. TECHNIQUE: Transabdominal obstetrical ultrasound was performed. COMPARISON: US US OB 2-3 TRIMESTER from 05/06/2025 FINDINGS: There is a single viable intrauterine gestation with cardiac activity identified-117 bpm The fetus is presently in cephalic position . Amniotic fluid: There is a normal amount of amniotic fluid with an STAN of 16.90cm. Placental location: The placenta is posterior grade 2,with no evidence of placenta previa. Dating parameters place this at approximately 32 weeks and 2 days gestational age, implying MACO of September 25, 2025. BPD measures 33 weeks and 1 day HC measures 32 weeks and 6 days AC measures 32 weeks and 4 days FL measures 30 weeks and 2 days Estimated weight is 1868 gm-4 pounds, 2 ounces Fetus is at the 16th percentile on the Hadlock scale. IMPRESSION:: Viable 3rd trimester gestation, as described above. Fetus is at the 16th percentile on the Hadlock scale. DATA REPOSITORY:
== END ==
PROVIDERS: PCP Nurse Practitioner Adult Health; Visit Provider Obstetrics & Gynecology
DX: O09.523 Supervision of elderly multigravida, third trimester (principal)
CPT/HCPCS: 76816

== ENCOUNTER 2025-08-27 12:16 | Outpatient (REF) | payer MEDICAID, SELFPAY | END 2025-08-27 12:17 | disposition home or self-care (01) | LOC: LBN 12:16 | PROVIDERS: PCP Nurse Practitioner Adult Health; Visit Provider Obstetrics & Gynecology | DX: Z34.93 Encounter for supervision of normal pregnancy, unspecified, third trimester (principal) | CPT/HCPCS: 87081; 87480; 87510; 87660 ==

== ENCOUNTER 2025-09-04 07:15 | Outpatient (CLI) | payer MEDICAID, SELFPAY ==
[2025-09-04 14:02] VITALS: BP 106/65; PULSE 87; TEMP 36.5
[2025-09-04 14:03] VITALS: BP 106/65; PULSE 87
[2025-09-04 16:00] LABS: Abs Immature Grans 0.67 10^3/uL (0.0-0.06); HCT 32.6 % (36.0-46.0); HGB 10.8 g/dL (11.2-15.7); MCH 26.2 pg (27.0-33.0); MCHC 33.1 % (32.0-36.0); MCV 79 fL (80-95); MPV 9.6 fL (8.0-11.0); Platelet Count 231 10^3/uL (130-400); RBC 4.12 10^6/uL (3.93-5.22); RDW 12.7 % (11.7-14.6); RDW-SD 36.4 fL; WBC 17.61 10^3/uL (4.4-10.8)
[2025-09-04 16:13] LABS: RBC Morphology Normal
[2025-09-04 16:16] LABS: ALT 11 U/L (10-49); AST 20 U/L (<34); Albumin 3.4 g/dL (3.2-5.0); Alkaline Phosphatase 127 U/L (46-116); Anion Gap 10.8 mmol/L (3-11); BUN 8 mg/dL (9-23); Bilirubin, Direct 0.1 mg/dL (<=0.3); Bilirubin, Total 0.5 mg/dL (0.2-1.2); CO2 21.2 mmol/L (20.0-31.0); Calcium 8.7 mg/dL (8.3-10.6); Chloride 106 mmol/L (98-107); Glucose 85 mg/dL (74-106); Potassium 4.1 mmol/L (3.5-5.1); Sodium 138 mmol/L (136-145); Total Protein 6.1 g/dL (5.7-8.2)
--- NOTE | 2025-09-04 17:28 | W.OBNST ---
Date of service: 09/04/25 Time of Service: 17:28 NST Evaluation Reason for NST Reasons for Nonstress Test: ADVANCED MATERNAL AGE Gestational Age Gestational Age in Weeks and Days: 37 Weeks and 4Days Test and Monitor Explained Test/Monitor Explained: Test Explained and Monitor Explained Vital Signs Blood Pressure: 106/65 Pulse: 87 Temperature: 97.7 F Weight: 6.032 oz Urine Results Urine Protein: Negative Urine Ketones: Negative Urine Glucose: Negative Urine Blood: Negative NST Information Date on Monitor: 09/04/25 Time on Monitor: 14:02 Date off Monitor: 09/04/25 Time off Monitor: 15:05 Total Time on Monitor: 63 NST Interventions: PO Hydration NST Evaluation Patient States Movement: Present FHR Baseline: 130 Variability: Moderate 6-25 bpm Accelerations: 15x15 Decelerations: None NST Results: Reactive Note Ultrasound Done: N/A. NST Note Note: See PNC note from same day NST Reviewed and Verified by: Sadie Rondon
[2025-09-04 17:29] VITALS: BP 106/65; PULSE 87; TEMP 36.5
[2025-09-05 07:50] LABS: HBs Antibody, Quant <3.1 mIU/mL (See Note); Hepatitis B Surface Antigen Positive (Negative)
[2025-09-06 19:56] LABS: HBV DNA Detect/Quant, PCR <10 IU/mL (Undetected)
== END 2025-09-04 15:30 ==
LOC: BCD 07:15 → OBS 13:55
PROVIDERS: Obstetrics & Gynecology; PCP Nurse Practitioner Adult Health; Visit Provider Obstetrics & Gynecology
DX: B18.1 Chronic viral hepatitis B without delta-agent (principal); Z86.718 Personal history of other venous thrombosis and embolism; Z3A.37 37 weeks gestation of pregnancy; O09.513 Supervision of elderly primigravida, third trimester
CPT/HCPCS: 80053; 80076; 86704; 86706; 87340; 87517; 59025; 85025; 87341

== ENCOUNTER 2025-09-17 08:00 | Outpatient (CLI) | payer MEDICAID, SELFPAY ==
[2025-09-17 11:14] VITALS: BP 113/71; PULSE 93
[2025-09-17 11:37] VITALS: BP 113/71; PULSE 93; TEMP 36.6
--- NOTE | 2025-09-17 17:47 | W.OBNST ---
Date of service: 09/17/25 Time of Service: 11:20 NST Evaluation Reason for NST Reasons for Nonstress Test: ADVANCED MATERNAL AGE Gestational Age Gestational Age in Weeks and Days: 39 Weeks and 3Days Test and Monitor Explained Test/Monitor Explained: Test Explained, Monitor Explained and Patient Verbalized Understanding Vital Signs Blood Pressure: 113/71 Pulse: 93 Temperature: 97.9 F NST Information Date on Monitor: 09/17/25 Time on Monitor: 11:03 Date off Monitor: 09/17/25 Time off Monitor: 11:28 Total Time on Monitor: 25 NST Interventions: Notify Provider Contraction Frequency: 0 NST Evaluation Patient States Movement: Present FHR Baseline: 140 Variability: Moderate 6-25 bpm Accelerations: 15x15 Decelerations: None NST Results: Reactive Note Ultrasound Done: N/A. NST Note NST Reviewed and Verified by: Madeleine Kamara
[2025-09-17 17:48] VITALS: BP 113/71; PULSE 93; TEMP 36.6
== END 2025-09-17 11:53 ==
LOC: BCD 08:00 → OBS 11:02
PROVIDERS: PCP Nurse Practitioner Adult Health; Visit Provider Obstetrics & Gynecology
DX: O09.513 Supervision of elderly primigravida, third trimester (principal); Z3A.39 39 weeks gestation of pregnancy
CPT/HCPCS: 59025